=== PATIENT | female | born 1945 | race Caucasian/White ===

== ENCOUNTER → 2016-09-27 | Outpatient (REF) | payer MEDICARE | LOC: M SFHCCAPE 09:51 | PROVIDERS: ATTEND Physician Assistant | DX: E11.8 Type 2 diabetes mellitus with unspecified complications (principal); Z53.8 Procedure and treatment not carried out for other reasons ==

== ENCOUNTER → 2016-10-04 | Outpatient (REF) | payer MEDICARE ==
[2016-10-04 18:32] LABS: ALBUMIN 3.7 GM/DL (3.2-5.2); ALBUMIN/GLOBULIN RATIO 1.09 (1.00-1.93); ALKALINE PHOSPHATASE 105 U/L (45-117); ALT/SGPT 16 U/L (12-78); ANION GAP 9 MEQ/L (8-16); AST/SGOT 19 U/L (15-37); BILIRUBIN,TOTAL 0.5 MG/DL (0.2-1.0); BLOOD UREA NITROGEN 8 MG/DL (7-18); CALCIUM LEVEL 9.2 MG/DL (8.8-10.2); CARBON DIOXIDE LEVEL 29 MEQ/L (21-32); CHLORIDE LEVEL 106 MEQ/L (98-107); GLOMERULAR FILTRATION RATE > 60.0 (>39); GLUCOSE, FASTING 121 MG/DL (83-110); POTASSIUM SERUM 4.4 MEQ/L (3.5-5.1); SODIUM LEVEL 144 MEQ/L (136-145); TOTAL PROTEIN 7.1 GM/DL (6.4-8.2)
== END ==
LOC: M SFHCCAPE 09:54
PROVIDERS: ATTEND Physician Assistant
DX: E11.8 Type 2 diabetes mellitus with unspecified complications (principal)

== ENCOUNTER → 2016-10-22 | Outpatient (CLI) | payer MEDICARE ==
--- NOTE | 2016-10-22 10:21 | REPMRS ---
Patient History The patient states she had a clinical breast exam in October 2016. Patient is postmenopausal. Family history of breast cancer in mother at age 60. Patient had negative lump removed right breast about 20 years ago. Digital Mammo Screening Bilat: October 22, 2016 - Exam #: [id number] Bilateral CC and MLO view(s) were taken. Technologist: Aury Barragan, Technologist Prior study comparison: 2006, digital bilateral screening mammo, [facility]. FINDINGS: There are scattered fibroglandular densities. There is no evidence of cancer on this mammogram. ASSESSMENT: BI-RADS/ACR category 2 mammogram. Benign finding(s). Recommendation Routine screening mammogram of both breasts in 1 year (for women over age 40). This mammogram was interpreted with the aid of an FDA-approved computer-aided dectection system. Electronically Signed By: Meliton Au MD 10/22/16 [id number]
== END ==
LOC: M RAD 08:01
PROVIDERS: ATTEND Physician Assistant
DX: Z12.31 Encounter for screening mammogram for malignant neoplasm of breast (principal); Z78.0 Asymptomatic menopausal state; Z80.3 Family history of malignant neoplasm of breast

== ENCOUNTER → 2016-12-20 | Outpatient (REF) | payer MEDICARE ==
[2016-12-20 19:05] LABS: BASO % 0.5 % (0.0-1.0); EOS # 0.1 K/mm3 (0.0-0.50); EOS % 1.7 % (0.0-3.0); LARGE UNSTAINED CELL # 0.1 K/mm3 (0.0-0.4); LARGE UNSTAINED CELL % 2.1 % (0.0-4.0); LYMPH # 1.9 K/mm3 (1.5-4.5); LYMPH % 29.1 % (24.0-44.0); MEAN CORPUSCULAR HEMOGLOBIN 31.2 pg (27.0-33.0); MEAN CORPUSCULAR HGB CONC 32.9 g/dl (32.0-36.5); MEAN CORPUSCULAR VOLUME 94.6 fl (80.0-96.0); MONO # 0.4 K/mm3 (0.0-0.8); MONO % 6.4 % (0.0-5.0); NEUTROPHILS # 3.8 K/mm3 (1.8-7.7); NEUTROPHILS % 60.2 % (36.0-66.0); PLATELET COUNT, AUTOMATED 246 k/mm3 (150-450); RED CELL DISTRIBUTION WIDTH 12.1 % (11.5-14.5); WHITE BLOOD COUNT 6.2 K/mm3 (4.0-10.0)
[2016-12-20 20:07] LABS: ALBUMIN 3.9 GM/DL (3.2-5.2); ALBUMIN/GLOBULIN RATIO 1.15 (1.00-1.93); ALKALINE PHOSPHATASE 106 U/L (45-117); ALT/SGPT 25 U/L (12-78); ANION GAP 9 MEQ/L (8-16); AST/SGOT 22 U/L (15-37); BILIRUBIN,TOTAL 0.5 MG/DL (0.2-1.0); BLOOD UREA NITROGEN 13 MG/DL (7-18); CALCIUM LEVEL 9.4 MG/DL (8.8-10.2); CARBON DIOXIDE LEVEL 27 MEQ/L (21-32); CHLORIDE LEVEL 106 MEQ/L (98-107); CHOLESTEROL LEVEL 146 MG/DL (<200); GLOMERULAR FILTRATION RATE > 60.0 (>39); GLUCOSE, FASTING 131 MG/DL (83-110); POTASSIUM SERUM 4.2 MEQ/L (3.5-5.1); SODIUM LEVEL 142 MEQ/L (136-145); TOTAL PROTEIN 7.3 GM/DL (6.4-8.2); TRIGLYCERIDES LEVEL 127 MG/DL (<150)
== END ==
LOC: M SFHCCAPE 09:41
PROVIDERS: ATTEND Physician Assistant
DX: E11.8 Type 2 diabetes mellitus with unspecified complications (principal)

== ENCOUNTER → 2016-12-29 | Outpatient (REF) | payer MEDICARE | LOC: M SFHCCAPE 11:30 | PROVIDERS: ATTEND Physician Assistant | DX: R10.32 Left lower quadrant pain (principal) ==

== ENCOUNTER → 2017-01-03 | Outpatient (CLI) | payer MEDICARE ==
[~2017-01-03] MED LIST: GASTROGRAFIN SOLUTION 30ML (Q9963) As Ordered ONE; ISOVUE-370 76% 100ML VIAL (Q9967) As Ordered ONE
--- NOTE | 2017-01-03 14:06 | REP ---
CT ABDOMEN AND PELVIS WITH IV CONTRAST: TECHNIQUE: Axial contrast enhanced images from the lung bases to the pubic symphysis using 100 mL Isovue 370 intravenous contrast material with multiplanar reformations. No infiltrate is seen in the visualized lung bases. Liver, gallbladder, spleen, pancreas, and kidneys appear normal. Bilateral adrenal nodules are seen. Right adrenal nodule at bedtime a maximum diameter of 1.4 cm and left adrenal nodule has a maximum diameter of 2.1 cm. There is dilatation of the infrarenal abdominal aorta, maximum AP diameter is 3.5 cm. There is mild to moderate plaquing within the aneurysm. No adenopathy is seen. There is no free air or free fluid. There is no bowel wall thickening. There is no pelvic mass. Diffuse sigmoid diverticulosis is seen without evidence of acute diverticulitis. There are also multiple diverticula of the more superior aspect of the left colon. There are degenerative changes of the spine. There is a moderate hiatal hernia. IMPRESSION: Moderate hiatal hernia. Abdominal aortic aneurysm below the level of the renal artery measures 3.5 cm in maximum AP diameter. Sigmoid and left colonic diverticulosis without acute diverticulitis. No free air, free fluid or adenopathy. Bilateral adrenal nodules may represent adrenal adenomas. Recommend MRI of the adrenals or noncontrast CT of the adrenals to further evaluate. Signed by Meliton Au MD 01/03/2017 05:44 P
== END ==
LOC: M RAD 07:13
PROVIDERS: ATTEND Physician Assistant
DX: K44.9 Diaphragmatic hernia without obstruction or gangrene (principal); R93.5 Abnormal findings on diagnostic imaging of other abdominal regions, including retroperitoneum
CPT/HCPCS: 74177; Q9963; Q9967

== ENCOUNTER → 2017-01-11 | Outpatient (CLI) | payer MEDICARE ==
--- NOTE | 2017-01-11 17:26 | REP ---
RIBS BILATERAL WITH PA CHEST: REASON: Pain. Due to technique on both AP views posterior rib fractures on this exam can not be ruled out. This limited exam show no definite evidence of a rib fracture on the acceptable views provided. IMPRESSION: Limited exam. Repeat suggested. No definite acute fracture. Accompanying frontal view of the chest shows a right lower lobe patchy opacity possibly secondary to pneumonia or atelectasis. This needs to be correlated clinically with appropriate followup. It represents a change from the fontal view of the chest of 03/07/2014. Due to the potential for subsegmental atelectatic change due to splinting and right sided pain the concern for a right lower rib fracture is heightened. Consider bone scintigraphy.
== END ==
LOC: M CLY 14:23
PROVIDERS: ATTEND Physician Assistant
DX: R10.9 Unspecified abdominal pain (principal)

== ENCOUNTER → 2017-01-21 | Outpatient (CLI) | payer MEDICARE ==
--- NOTE | 2017-01-21 16:43 | REP ---
Clinical: Left anterior chest pain . Technique: Frontal view of the chest with multiple views of the right and left hemithoraces. Findings: Frontal view of the chest demonstrates a small peripheral right basilar infiltrate. Multiple views of the right and left hemithoraces demonstrate osteopenia and age-related changes as well as possible old subtle left rib fractures unchanged when compared to 03/07/2014. No new acute rib fracture/injury or pathology is appreciated. Impression: Possible small peripheral right basilar infiltrate/atelectasis. No obvious acute rib fracture identified.
== END ==
LOC: M CLY 15:51
PROVIDERS: ATTEND Physician Assistant
DX: R07.89 Other chest pain (principal)

== ENCOUNTER → 2017-02-03 | Outpatient (CLI) | payer MEDICARE ==
--- NOTE | 2017-02-03 13:57 | REP ---
MRI ADRENAL GLANDS: TECHNIQUE: Multiple axial and coronal sequences without IV contrast. These including in-phase and [id number] images. Small bilateral adrenal nodules are again seen. The right measures about 1.4 cm and the left about 2.1 cm. Comparing the in-phase to the [id number] images, there is a significant drop in signal within both nodules consistent with bilateral adrenal adenomas. IMPRESSION: MRI confirms that the small adrenal nodules do indeed represent adrenal adenomas. Signed by Meliton Au MD 02/03/2017 07:14 P
== END ==
LOC: M RAD 12:10
PROVIDERS: ATTEND Physician Assistant
DX: E27.9 Disorder of adrenal gland, unspecified (principal)

== ENCOUNTER → 2017-03-23 | Outpatient (REF) | payer MEDICARE ==
[2017-03-23 18:54] LABS: ALBUMIN 4.1 GM/DL (3.2-5.2); ALBUMIN/GLOBULIN RATIO 1.11 (1.00-1.93); ALKALINE PHOSPHATASE 121 U/L (45-117); ALT/SGPT 17 U/L (12-78); ANION GAP 7 MEQ/L (8-16); AST/SGOT 22 U/L (15-37); BILIRUBIN,TOTAL 0.5 MG/DL (0.2-1.0); BLOOD UREA NITROGEN 12 MG/DL (7-18); CALCIUM LEVEL 9.9 MG/DL (8.8-10.2); CARBON DIOXIDE LEVEL 28 MEQ/L (21-32); CHLORIDE LEVEL 106 MEQ/L (98-107); CHOLESTEROL LEVEL 151 MG/DL (<200); CREATININE FOR GFR 0.67 MG/DL (0.55-1.02); FREE T4 0.93 NG/DL (0.76-1.46); GLOMERULAR FILTRATION RATE > 60.0 (>39); GLUCOSE, FASTING 108 MG/DL (83-110); POTASSIUM SERUM 4.6 MEQ/L (3.5-5.1); SODIUM LEVEL 141 MEQ/L (136-145); TOTAL PROTEIN 7.8 GM/DL (6.4-8.2); TRIGLYCERIDES LEVEL 136 MG/DL (<150)
== END ==
LOC: M SFHCCAPE 07:06
PROVIDERS: ATTEND Physician Assistant
DX: I10 Essential (primary) hypertension (principal); E11.9 Type 2 diabetes mellitus without complications; Z79.82 Long term (current) use of aspirin; Z79.899 Other long term (current) drug therapy

== ENCOUNTER → 2017-03-29 | Outpatient (REF) | payer MEDICARE ==
[2017-03-29 18:23] LABS: ADD MANUAL DIFFER YES; MEAN CORPUSCULAR HEMOGLOBIN 32.1 pg (27.0-33.0); MEAN CORPUSCULAR HGB CONC 33.3 g/dl (32.0-36.5); MEAN CORPUSCULAR VOLUME 96.3 fl (80.0-96.0); PLATELET COUNT, AUTOMATED 286 k/mm3 (150-450); RED CELL DISTRIBUTION WIDTH 12.1 % (11.5-14.5); WHITE BLOOD COUNT 7.3 K/mm3 (4.0-10.0)
[2017-03-29 21:54] LABS: BASOPHILS 2 % (0-4); EOSINOPHILS 3 % (0-5)
== END ==
LOC: M SFHCCAPE 16:50
PROVIDERS: ATTEND Physician Assistant
DX: E11.9 Type 2 diabetes mellitus without complications (principal)

== ENCOUNTER 2017-05-05 16:12 | Emergency (ER) | payer MEDICARE ==
[~2017-05-05] VITALS: Ht 152.4 cm; Wt 70.4 kg
[2017-05-05 16:12] VITALS: BP 151/89
[2017-05-05] MEDS ORDERED: OXYCODONE/APAP 5MG/325MG(BULK FOR ED) 1 TABLET PO ONE (20:15)
[2017-05-05] MEDS ORDERED: PERCOCET 5MG/325MG TAB PO ONE (20:15)
== END 2017-05-05 20:46 | disposition home or self-care (01) ==
LOC: M ED 16:12
DX: M62.830 Muscle spasm of back (principal); I10 Essential (primary) hypertension; J44.9 Chronic obstructive pulmonary disease, unspecified; K21.9 Gastro-esophageal reflux disease without esophagitis; Z72.0 Tobacco use
CPT/HCPCS: 96374; 99281; J3360

== ENCOUNTER → 2017-05-06 | Outpatient (CLI) | payer MEDICARE ==
[~2017-05-06] MED LIST changes: -GASTROGRAFIN SOLUTION 30ML (Q9963) As Ordered ONE
--- NOTE | 2017-05-06 16:40 | REP ---
Clinical: Chronic cough. Technique: Axial contrast enhanced images from the thoracic inlet to the upper abdomen using 100 ml Isovue 370 intravenous contrast material with coronal and sagittal re-formations. Findings: Lung anderson demonstrate age-related scattered chronic interstitial changes and trace opacities in the lingula and deep right lung base which may reflect acute versus chronic fibroatelectatic changes. The opacity in the lingula measures roughly 2 cm maximal transverse diameter. No further consolidation, significant nodule or mass lesion identified. Tracheobronchial tree is patent. No obvious adenopathy. Mediastinum demonstrates atherosclerotic changes to the thoracic aorta and coronary arteries without aortic aneurysm/dissection or cardiomegaly. No pericardial effusion. Surrounding musculoskeletal structures demonstrate age-related degenerative changes. The visualized upper abdomen suggests bilateral adrenal hyperplasia and atherosclerotic changes along with mural thrombus and mild aneurysmal dilatation to the upper abdominal aorta cannot be excluded. Impression: 1. Lung anderson demonstrate chronic changes along with subtle opacities involving the lingula and right base which warrants followup examination in 3-6 months. 2. Limited evaluation of the upper abdomen incompletely evaluates a possible abdominal aortic aneurysm with mural thrombus and appears stable compared to CT of the abdomen dated 01/03/2017. Signed by Serjio King MD 05/06/2017 04:30 P
== END ==
LOC: M RAD 15:58
PROVIDERS: ATTEND Physician Assistant
DX: R91.8 Other nonspecific abnormal finding of lung field (principal)
CPT/HCPCS: 71260; Q9967

== ENCOUNTER → 2017-06-27 | Outpatient (REF) | payer MEDICARE ==
[2017-06-27 19:51] LABS: BASO % 0.5 % (0.0-1.0); EOS # 0.1 10^3/uL (0.0-0.50); EOS % 1.3 % (0.0-3.0); IMMATURE GRANULOCYTE % 0.3 % (0-0); LYMPH # 1.7 10^3/uL (1.5-4.5); LYMPH % 22.4 % (24.0-44.0); MEAN CORPUSCULAR HEMOGLOBIN 31.1 pg (27.0-33.0); MEAN CORPUSCULAR HGB CONC 32.6 g/dl (32.0-36.5); MEAN CORPUSCULAR VOLUME 95.1 fl (80.0-96.0); MONO # 0.6 10^3/uL (0.0-0.8); MONO % 7.7 % (0.0-5.0); NEUTROPHILS # 5.1 10^3/uL (1.8-7.7); NEUTROPHILS % 67.8 % (36.0-66.0); PLATELET COUNT, AUTOMATED 241 10^3/uL (150-450); RED CELL DISTRIBUTION WIDTH 11.9 % (11.5-14.5); WHITE BLOOD COUNT 7.5 10^3/uL (4.0-10.0)
[2017-06-27 21:20] LABS: ALBUMIN 3.6 GM/DL (3.2-5.2); ALBUMIN/GLOBULIN RATIO 1.09 (1.00-1.93); ALKALINE PHOSPHATASE 109 U/L (45-117); ALT/SGPT 15 U/L (12-78); ANION GAP 9 MEQ/L (8-16); AST/SGOT 14 U/L (15-37); BILIRUBIN,TOTAL 0.4 MG/DL (0.2-1.0); BLOOD UREA NITROGEN 9 MG/DL (7-18); CALCIUM LEVEL 9.4 MG/DL (8.8-10.2); CARBON DIOXIDE LEVEL 29 MEQ/L (21-32); CHLORIDE LEVEL 105 MEQ/L (98-107); CHOLESTEROL LEVEL 135 MG/DL (<200); CREATININE FOR GFR 0.63 MG/DL (0.55-1.02); FREE T4 0.97 NG/DL (0.76-1.46); GLOMERULAR FILTRATION RATE > 60.0 (>39); GLUCOSE, FASTING 131 MG/DL (83-110); SODIUM LEVEL 143 MEQ/L (136-145); TOTAL PROTEIN 6.9 GM/DL (6.4-8.2); TRIGLYCERIDES LEVEL 103 MG/DL (<150)
== END ==
LOC: M SFHCCAPE 10:02
PROVIDERS: ATTEND Physician Assistant
DX: E78.5 Hyperlipidemia, unspecified (principal); I10 Essential (primary) hypertension; E11.9 Type 2 diabetes mellitus without complications

== ENCOUNTER → 2017-07-21 | Outpatient (REF) | payer MEDICARE ==
[2017-07-21 17:25] LABS: INR 1.03
== END ==
LOC: M LAB REF 16:43
PROVIDERS: ATTEND Thoracic Surgery (Cardiothoracic Vascular Surgery)
DX: Z01.812 Encounter for preprocedural laboratory examination (principal); R91.1 Solitary pulmonary nodule

== ENCOUNTER → 2017-07-26 | Outpatient (CLI) | payer MEDICARE ==
[~2017-07-26] MED LIST changes: -ISOVUE-370 76% 100ML VIAL (Q9967) As Ordered ONE; +LIDOCAINE 1% MDV 20ML VIAL As Ordered ONE
--- NOTE | 2017-07-26 17:31 | REP ---
LIMITED CT CHEST: Limited CT of the chest is performed in the inferior aspect at the site of the consolidative opacity at the left costophrenic angle. The patient was scheduled for CT guided biopsy of this area today. However the consolidative opacity has resolved. This appears to have represented an area of atelectasis or infiltrate. There is no residual atelectasis or infiltrate remaining. Therefore no biopsy is performed. Signed by Meliton uA MD 07/27/2017 01:52 P
== END ==
LOC: M RADPRO 09:50
PROVIDERS: ATTEND Thoracic Surgery (Cardiothoracic Vascular Surgery)
DX: R91.1 Solitary pulmonary nodule (principal); Z87.891 Personal history of nicotine dependence; Z79.899 Other long term (current) drug therapy; Z53.9 Procedure and treatment not carried out, unspecified reason

== ENCOUNTER → 2017-09-14 | Outpatient (REF) | payer MEDICARE ==
[2017-09-14 18:03] LABS: ESTIMATED AVERAGE GLUCOSE 131 MG/DL (60-110); HEMOGLOBIN A1c 6.2 %
[2017-09-14 18:04] LABS: ALBUMIN 4.1 GM/DL (3.2-5.2); ALBUMIN/GLOBULIN RATIO 1.28 (1.00-1.93); ALKALINE PHOSPHATASE 107 U/L (45-117); ALT/SGPT 20 U/L (12-78); ANION GAP 9 MEQ/L (8-16); AST/SGOT 21 U/L (7-37); BILIRUBIN,TOTAL 0.5 MG/DL (0.2-1.0); BLOOD UREA NITROGEN 14 MG/DL (7-18); CALCIUM LEVEL 9.7 MG/DL (8.8-10.2); CARBON DIOXIDE LEVEL 28 MEQ/L (21-32); CHLORIDE LEVEL 106 MEQ/L (98-107); CHOLESTEROL LEVEL 161 MG/DL (<200); CHOLESTEROL RISK RATIO 2.555 (<5); CREATININE FOR GFR 0.72 MG/DL (0.55-1.02); GLOMERULAR FILTRATION RATE > 60.0 (>39); GLUCOSE, FASTING 112 MG/DL (83-110); HDL CHOLESTEROL 63 MG/DL (>40); LDL CHOLESTEROL 71.6 MG/DL (<100); NON-HDL-C 98 MG/DL; POTASSIUM SERUM 4.3 MEQ/L (3.5-5.1); SODIUM LEVEL 143 MEQ/L (136-145); TOTAL PROTEIN 7.3 GM/DL (6.4-8.2); TRIGLYCERIDES LEVEL 132 MG/DL (<150)
[2017-09-14 19:00] LABS: MALB URINE SIEMENS 14.2 MG/L; MAU/CREAT RATIO 17.1 MCG/MG (0.0-30.0)
== END ==
LOC: M SFHCCAPE 09:59
DX: I10 Essential (primary) hypertension (principal); E11.9 Type 2 diabetes mellitus without complications; E78.5 Hyperlipidemia, unspecified
CPT/HCPCS: 80053

== ENCOUNTER → 2017-11-23 | Outpatient (CLI) | payer MEDICARE | LOC: M CARPUL 10:48 | DX: R91.1 Solitary pulmonary nodule (principal) | CPT/HCPCS: 94060 ==

== ENCOUNTER → 2018-03-02 | Outpatient (REF) | payer MEDICARE ==
[2018-03-02 17:12] LABS: BASO % 0.5 % (0.0-1.0); EOS # 0.1 10^3/uL (0.0-0.50); EOS % 1.2 % (0.0-3.0); HEMATOCRIT 41.8 % (36.0-47.0); HEMOGLOBIN 13.9 g/dl (12.0-15.5); IMMATURE GRANULOCYTE % 0.2 % (0-3.0); LYMPH # 1.9 10^3/uL (1.5-4.5); LYMPH % 28.1 % (24.0-44.0); MEAN CORPUSCULAR HEMOGLOBIN 31.6 pg (27.0-33.0); MEAN CORPUSCULAR HGB CONC 33.3 g/dl (32.0-36.5); MONO # 0.6 10^3/uL (0.0-0.8); MONO % 8.9 % (0.0-5.0); NEUTROPHILS # 4.1 10^3/uL (1.8-7.7); NEUTROPHILS % 61.1 % (36.0-66.0); PLATELET COUNT, AUTOMATED 246 10^3/uL (150-450); RED CELL DISTRIBUTION WIDTH 11.9 % (11.5-14.5); WHITE BLOOD COUNT 6.7 10^3/uL (4.0-10.0)
[2018-03-02 17:24] LABS: ALBUMIN 3.7 GM/DL (3.2-5.2); ALBUMIN/GLOBULIN RATIO 1.06 (1.00-1.93); ALKALINE PHOSPHATASE 101 U/L (45-117); ALT/SGPT 21 U/L (12-78); ANION GAP 10 MEQ/L (8-16); AST/SGOT 19 U/L (7-37); BILIRUBIN,TOTAL 0.5 MG/DL (0.2-1.0); BLOOD UREA NITROGEN 13 MG/DL (7-18); CARBON DIOXIDE LEVEL 26 MEQ/L (21-32); CHLORIDE LEVEL 108 MEQ/L (98-107); CHOLESTEROL LEVEL 145 MG/DL (<200); CHOLESTEROL RISK RATIO 2.543 (<5); CREATININE FOR GFR 0.68 MG/DL (0.55-1.30); GLOMERULAR FILTRATION RATE > 60.0 (>39); GLUCOSE, FASTING 111 MG/DL (70-100); HDL CHOLESTEROL 57 MG/DL (>40); LDL CHOLESTEROL 61.4 MG/DL (<100); NON-HDL-C 88 MG/DL; POTASSIUM SERUM 4.2 MEQ/L (3.5-5.1); SODIUM LEVEL 144 MEQ/L (136-145); TOTAL PROTEIN 7.2 GM/DL (6.4-8.2); TRIGLYCERIDES LEVEL 133 MG/DL (<150)
[2018-03-02 17:28] LABS: ESTIMATED AVERAGE GLUCOSE 134 MG/DL (60-110); HEMOGLOBIN A1c 6.3 %
== END ==
LOC: M SFHCCAPE 10:42
DX: I10 Essential (primary) hypertension (principal); E11.9 Type 2 diabetes mellitus without complications; E78.5 Hyperlipidemia, unspecified
CPT/HCPCS: 80053

== ENCOUNTER → 2018-09-27 | Outpatient (REF) | payer MEDICARE ==
[2018-09-27 18:01] LABS: ALBUMIN 3.7 GM/DL (3.2-5.2); ALT/SGPT 21 U/L (12-78); BILIRUBIN,TOTAL 0.5 MG/DL (0.2-1.0); BLOOD UREA NITROGEN 10 MG/DL (7-18); CALCIUM LEVEL 9.6 MG/DL (8.8-10.2); CARBON DIOXIDE LEVEL 26 MEQ/L (21-32); CHLORIDE LEVEL 107 MEQ/L (98-107); CHOLESTEROL LEVEL 175 MG/DL (<200); CREATININE FOR GFR 0.73 MG/DL (0.55-1.30); GLOMERULAR FILTRATION RATE > 60.0 (>39); GLUCOSE, FASTING 106 MG/DL (70-100); HDL CHOLESTEROL 54 MG/DL (>40); LDL CHOLESTEROL 87 MG/DL (<100); NON-HDL-C 121 MG/DL; POTASSIUM SERUM 4.3 MEQ/L (3.5-5.1); SODIUM LEVEL 142 MEQ/L (136-145); TOTAL PROTEIN 7.3 GM/DL (6.4-8.2); TRIGLYCERIDES LEVEL 168 MG/DL (<150)
[2018-09-27 18:29] LABS: HEMOGLOBIN A1c 6.5 %
[2018-09-27 18:30] LABS: MALB URINE SIEMENS 21.7 MG/L
== END ==
LOC: M SFHCCAPE 10:44
PROVIDERS: ATTEND Physician Assistant
DX: E78.5 Hyperlipidemia, unspecified (principal); E11.9 Type 2 diabetes mellitus without complications

== ENCOUNTER → 2018-12-05 | Outpatient (CLI) | payer MEDICARE ==
--- NOTE | 2018-12-05 14:58 | REP ---
Clinical: Lung screening. History nicotine dependence. Comparison: 05/06/2017 Technique: Axial low-dose noncontrast images from the thoracic inlet to the upper abdomen using lung screening technique. Findings: The lung anderson demonstrate chronic age-related interstitial changes along with scattered chronic-appearing fibroatelectatic changes. Small areas of ill-defined opacity are identified predominantly in the right lower lobe with the largest near-solid area measuring approximately 11.5 mm. No pleural effusion/reaction or pneumothorax. Tracheobronchial tree is patent. Mediastinum demonstrates atherosclerotic changes of the coronary arteries without cardiomegaly. Incidental old healed rib fractures noted. Impression: Lung-RADS category IV-A. Management recommendations include 3-month follow-up chest CT. Electronically Signed by Serjio King MD 12/05/2018 02:49 P
== END ==
LOC: M RAD 13:50
PROVIDERS: ATTEND Physician Assistant
DX: Z12.2 Encounter for screening for malignant neoplasm of respiratory organs (principal); R91.8 Other nonspecific abnormal finding of lung field; F17.218 Nicotine dependence, cigarettes, with other nicotine-induced disorders

== ENCOUNTER → 2019-01-19 | Outpatient (CLI) | payer MEDICARE ==
--- NOTE | 2019-01-19 15:07 | REP ---
REASON: Followup abdominal aortic aneurysm. No prior ultrasounds for comparison. Previous CT showed aneurysm. Multiple ultrasonographic images of the abdominal aorta were obtained from the level of the celiac axis to the aortoiliac bifurcation in the longitudinal and transverse scan planes. The maximal AP dimension of the abdominal aorta as measured in the longitudinal scan plane is 5 cm. This aneurysmal dilatation measures 4.8 cm in length. It begins just beneath the renal veins continuing inferiorly. There is no evidence of common iliac artery ectasia. IMPRESSION: Abdominal aortic aneurysm as described above. Electronically Signed by Mj Leyva DO 01/19/2019 06:08 P
--- NOTE | 2019-01-19 15:22 | REPMRS ---
Patient History The patient states she has not had a clinical breast exam in over a year. Family history of breast cancer at age 60 in mother. Digital Mammo Screening Bilat: January 19, 2019 - Exam #: [id number] Bilateral CC and MLO view(s) were taken. Technologist: Aury Barragan, Technologist Prior study comparison: October 22, 2016, bilateral digital mammo screening bilat performed at [facility]. FINDINGS: There are scattered fibroglandular densities. There has been no change in the appearance of the mammogram from the prior studies. There is a mild amount of scattered fibroglandular density which is fairly symmetric. There is no interval development of dominant mass, architectural distortion, or clustered microcalcification suggestive of malignancy. 3-D tomosynthesis shows no additional findings. Assessment: BI-RADS/ACR category 1 mammogram. Negative Mammogram. Recommendation Routine screening mammogram of both breasts in 1 year (for women over age 40). This patient's Lifetime Breast Cancer RIsk is estimated at 4.9 %. This mammogram was interpreted with the aid of an FDA-approved computer-aided dectection system. Electronically Signed By: Vinicio Swain MD 01/19/19 [id number]
== END ==
LOC: M RAD 09:28
PROVIDERS: ATTEND Physician Assistant
DX: Z12.31 Encounter for screening mammogram for malignant neoplasm of breast (principal); I71.4 Abdominal aortic aneurysm, without rupture

== ENCOUNTER → 2019-01-22 | Outpatient (REF) | payer MEDICARE ==
[2019-01-22 18:46] LABS: BASO % 0.5 % (0.0-1.0); EOS # 0.1 10^3/uL (0.0-0.50); EOS % 0.9 % (0.0-3.0); HEMATOCRIT 39.3 % (36.0-47.0); HEMOGLOBIN 12.7 g/dl (12.0-15.5); LYMPH # 1.7 10^3/uL (1.5-4.5); LYMPH % 30.3 % (24.0-44.0); MEAN CORPUSCULAR HEMOGLOBIN 31.7 pg (27.0-33.0); MEAN CORPUSCULAR HGB CONC 32.3 g/dl (32.0-36.5); MONO # 0.6 10^3/uL (0.0-0.8); MONO % 10.4 % (0.0-5.0); NEUTROPHILS # 3.2 10^3/uL (1.8-7.7); NEUTROPHILS % 57.7 % (36.0-66.0); PLATELET COUNT, AUTOMATED 284 10^3/uL (150-450); RED BLOOD COUNT 4.01 10^6/uL (4.00-5.40); WHITE BLOOD COUNT 5.6 10^3/uL (4.0-10.0)
[2019-01-22 20:54] LABS: ALBUMIN 3.5 GM/DL (3.2-5.2); ALT/SGPT 18 U/L (12-78); BILIRUBIN,TOTAL 0.4 MG/DL (0.2-1.0); BLOOD UREA NITROGEN 10 MG/DL (7-18); CALCIUM LEVEL 9.1 MG/DL (8.8-10.2); CARBON DIOXIDE LEVEL 25 MEQ/L (21-32); CHLORIDE LEVEL 108 MEQ/L (98-107); CHOLESTEROL LEVEL 128 MG/DL (<200); CHOLESTEROL RISK RATIO 2.461 (<5); CREATININE FOR GFR 0.65 MG/DL (0.55-1.30); FOLATE > 24.0 NG/ML; GLOMERULAR FILTRATION RATE > 60.0 (>39); GLUCOSE, FASTING 104 MG/DL (70-100); HDL CHOLESTEROL 52 MG/DL (>40); LDL CHOLESTEROL 50 MG/DL (<100); NON-HDL-C 76 MG/DL; POTASSIUM SERUM 4.3 MEQ/L (3.5-5.1); SODIUM LEVEL 142 MEQ/L (136-145); THYROID STIMULATING HORMONE 0.967 uIU/ML (0.358-3.740); TOTAL PROTEIN 7.4 GM/DL (6.4-8.2); TRIGLYCERIDES LEVEL 128 MG/DL (<150); VITAMIN B12 LEVEL 557 PG/ML
[2019-01-22 21:29] LABS: HEMOGLOBIN A1c 6.2 %
== END ==
LOC: M SFHCCAPE 10:45
PROVIDERS: ATTEND Physician Assistant
DX: E11.8 Type 2 diabetes mellitus with unspecified complications (principal); E78.5 Hyperlipidemia, unspecified; K13.0 Diseases of lips

== ENCOUNTER → 2019-02-27 | Outpatient (CLI) | payer MEDICARE ==
--- NOTE | 2019-02-27 15:14 | REP ---
CT of the chest without IV contrast: Comparisons are the chest CT studies dated 12/05/2018 and 05/06/2017. In addition, images performed during a CT-guided lung biopsy o dated 09/24/2016 are reviewed. Upon review on 05/06/2017 there was a pleural-based nodular density in the deep inferolateral sulcus of the left hemithorax. The patient return for biopsy of this lesion on 07/26/2017, however the time of biopsy this lesion had resolved head. 05/06/2017 there was a pleural-based density in the deep inferior sulcus of the right hemithorax. This had decreased in size on 12/05/2018. However, on the study today the density in this location is again identified measuring 2.5 x 0.8 cm. Follow-up is recommended to determine if this lesion is persistent or transient. No other lung nodules or masses are identified. There is a small focal zone of chronic mild reticulonodular pattern anteromedially in the lingula of the left upper, unchanged from 12/05/2018, likely parenchymal scarring. The there is no mediastinal or axillary lymph node enlargement. In the absence of IV contrast the study is insensitive for hilar lymph node enlargement. There are multiple old left rib fractures posteriorly, posterolaterally and anteriorly. The unenhanced thoracic aorta is unremarkable. Cardiac size is normal. There is no pericardial effusion. Next the visualized upper abdominal contents demonstrate aneurysmal dilatation of the abdominal aorta measuring 4.1 cm in diameter. This is unchanged from 05/06/2017. Impression: There are multiple findings as described. In addition there is an abdominal aortic aneurysm as described. Electronically Signed by Meliton Alarcon MD 02/27/2019 03:05 P
== END ==
LOC: M RAD 13:25
PROVIDERS: ATTEND Physician Assistant
DX: R91.1 Solitary pulmonary nodule (principal)

== ENCOUNTER 2019-03-23 12:07 | Inpatient (IN) | payer MEDICARE, OTHER ==
[~2019-03-23] VITALS: Ht 152.4 cm; Wt 59.3 kg
[2019-03-23] MEDS ORDERED: ATOR40TA75 PO (12:15)
[2019-03-23] MEDS ORDERED: TREL1AER INH (12:15)
[2019-03-23] MEDS ORDERED: AMLO5TAB6 PO (12:15)
[2019-03-23] MEDS ORDERED: OMEP-218 PO (12:16)
[2019-03-23] MEDS ORDERED: ASPI81TA85 PO (12:16)
[2019-03-23] MEDS ORDERED: PARO40TA2 PO (12:16)
[2019-03-23] MEDS ORDERED: AMPICILLIN SOD/SULBACTAM SOD 3 GM in D5W MINI-BAG PLUS 100 ML IV ONE (13:00)
[2019-03-23 13:56] LABS: BASO % 0.3 % (0.0-1.0); EOS % 0.1 % (0.0-3.0); HEMATOCRIT 40.4 % (36.0-47.0); HEMOGLOBIN 13.3 g/dl (12.0-15.5); LYMPH # 1.8 10^3/uL (1.5-4.5); LYMPH % 14.3 % (24.0-44.0); MEAN CORPUSCULAR HEMOGLOBIN 31.4 pg (27.0-33.0); MEAN CORPUSCULAR HGB CONC 32.9 g/dl (32.0-36.5); MEAN CORPUSCULAR VOLUME 95.3 fl (80.0-96.0); MONO % 8.1 % (0.0-5.0); NEUTROPHILS # 9.6 10^3/uL (1.8-7.7); NEUTROPHILS % 76.8 % (36.0-66.0); PLATELET COUNT, AUTOMATED 277 10^3/uL (150-450); RED BLOOD COUNT 4.24 10^6/uL (4.00-5.40); WHITE BLOOD COUNT 12.6 10^3/uL (4.0-10.0)
--- NOTE | 2019-03-23 14:20 | REP ---
ULTRASOUND LEFT LATERAL ANKLE AND FOOT: Real-time sonographic evaluation of the left lateral ankle and foot region performed in the region of prior cat bite and swelling. At that location there is a oval area of mixed echogenicity which has an appearance most consistent with either phlegmonous change or an area of complex fluid. The area measures 2.7 x 0.6 x 3.2 cm. Electronically Signed by Meliton Au MD 03/25/2019 07:28 P
[2019-03-23 14:28] LABS: ERYTHROCYTE SEDIMENTATION RATE 60 mm/hr (0-30)
[2019-03-23 14:41] LABS: ALBUMIN 3.9 GM/DL (3.2-5.2); ALT/SGPT 18 U/L (12-78); BILIRUBIN,DIRECT 0.2 MG/DL (0.0-0.2); BILIRUBIN,TOTAL 0.8 MG/DL (0.2-1.0); BLOOD UREA NITROGEN 13 MG/DL (7-18); C REACTIVE PROTEIN QUANTITATIV 6.93 MG/DL (0.00-0.30); CALCIUM LEVEL 10.2 MG/DL (8.8-10.2); CARBON DIOXIDE LEVEL 26 MEQ/L (21-32); CHLORIDE LEVEL 104 MEQ/L (98-107); GLOMERULAR FILTRATION RATE > 60.0 (>39); GLUCOSE, FASTING 98 MG/DL (70-100); POTASSIUM SERUM 4.6 MEQ/L (3.5-5.1); SODIUM LEVEL 137 MEQ/L (136-145); TOTAL PROTEIN 7.9 GM/DL (6.4-8.2)
[2019-03-23] MEDS ORDERED: VITMTA PO (15:28)
[2019-03-23] MEDS ORDERED: ALB2.5NEB INH (15:28)
[2019-03-23] MEDS ORDERED: MAALOX 30 ML SUSP *UDC PO PRN (16:15)
[2019-03-23] MEDS ORDERED: ACETAMINOPHEN TAB 650MG DOSE (2X325MG) PO PRN (16:15)
[2019-03-23] MEDS ORDERED: MOM 30ML SUSPENSION UDC PO PRN (16:15)
--- NOTE | 2019-03-23 16:44 | HPEPDOC ---
General Date of Admission 03/23/19 Date of Service: Mar 23, 2019 Primary Care Physician: DESI BONILLA PA-C Other Providers Dr Pelaez Attending Physician: MICHAEL MARS DO Chief Complaint The patient is a 73-year-old female admitted with a reason for visit of Animal Bmtg-Vof-Ykrme To Ph/Kit. Source: Patient Exam Limitations: No limitations Timing/Duration: Day(s) (03/21/19) Severity: Moderate Associated Symptoms: Fever, Chills, Rash, Other (foot pain , swelling and drainage) History of Present Illness 73 yo diet controlled DM female seen in ED yesterday for cat bite, but did not get medications filled, returned to ED with increased fever, chills, foot swelling and pain. States on 03/21/19 was playing with a latter day adopted cat, put her foot on top of cat, and cat attacked her by biting and scratching. States throbbing foot pain with numbness intermittently to foot. pain to foot with walking. states no N, no V, no ANDERSON, no Cp, no SOB but has chronic smoker cough Home Medications Scheduled Amlodipine Besylate (Amlodipine Besylate) 5 Mg Tablet, 5 MG PO DAILY, (Reported) Aspirin (Aspir 81) 81 Mg Tablet.dr, 81 MG PO DAILY, (Reported) Atorvastatin Calcium (Atorvastatin Calcium) 40 Mg Tablet, 40 MG PO QHS, (Reported) Fluticasone/Umeclidin/Vilanter (Trelegy Ellipta 100-62.5-25) 1 Each Blst.w.dev, 1 PUFF INH DAILY, (Reported) Multivitamins (Thera M Plus Tablet) 1 Each Tablet, 1 TAB PO DAILY, (Reported) Omeprazole (Omeprazole) 20 Mg Capsule.dr, 20 MG PO DAILY, (Reported) Paroxetine HCl (Paroxetine HCl) 40 Mg Tablet, 40 MG PO DAILY, (Reported) Scheduled PRN Albuterol Sulfate (Albuterol Sulfate) 2.5 Mg/0.5 Ml Vial.neb, 2.5 MG INH Q6H PRN for SHORTNESS OF BREATH, (Reported) Allergies Coded Allergies: No Known Drug Allergies (Verified Allergy, Unknown, 03/23/19) Past Medical History Medical History HTN Hyperlipidemia COPD GERD Anxiety/depression NIDDM - diet controlled AAA Past surgical history: Right benign breast lumpectomy partial hysterectomy Social history: smokes 1 ppd no EtOH use Family history: mother from mucous plug and sepsis; father from lung cancer A-FIB/CHADSVASC A-FIB History Current/History of A-Fib/PAF?: No Review of Systems Other systems 10 systems reviewed and negative except as per HPI Physical Examination General Exam: Positive: Alert, Cooperative, Mild Distress Eye Exam: Positive: PERRLA, Conjunctiva & lids normal, EOMI ENT Exam: Positive: Atraumatic, Mucous membr. moist/pink, Pharynx Normal, Nares Patent Neck Exam: Positive: Supple, +2 carotid pulse wo bruit, Other (no cervical adenopathy) Chest Exam: Positive: Clear to auscultation, Normal air movement; Negative: Rales, Rhonchi, Wheezing, Diminished Heart Exam: Positive: Rate Normal, Regular Rhythm, Normal S1, Normal S2 Abdomen Exam: Positive: Normal bowel sounds, Soft (NT ND NABS; no inguinal adenopathy, no hernia) Extremity Exam: Positive: Edema (left dorsum of foot), Normal pulses, Tenderness (left foot), Swelling (left foot), Other (good cap refill to toes bilaterally; left foot warm to touch); Negative: Clubbing, Cyanosis Skin Exam: Positive: Nl turgor and temperature, Other skin issue (ertyhema to dorsum of left foot extending past ankle; serous drainage) Neuro Exam: Positive: Normal Speech, Strength at 5/5 X4 ext, Normal Tone, Sensation Intact Psych Exam: Positive: Mental status NL, Mood NL, Memory Intact, Oriented x 3 Other physical findings US left foot with loculated fluid area (inflammatory vs infectious) Vital Signs Vital Signs Date Time Temp Pulse Resp B/P (MAP) Pulse Ox O2 Delivery O2 Flow Rate FiO2 03/23/19 15:00 134/99 (111) 03/23/19 14:52 78 95 03/23/19 12:08 96.8 18 Room Air Laboratory Data Labs 24H Laboratory Tests 2 03/23/19 13:37: Immature Granulocyte % (Auto) 0.4, White Blood Count 12.6H, Red Blood Count 4.24, Hemoglobin 13.3, Hematocrit 40.4, Mean Corpuscular Volume 95.3, Mean Corpuscular Hemoglobin 31.4, Mean Corpuscular Hemoglobin Concent 32.9, Red Cell Distribution Width 13.2, Platelet Count 277, Neutrophils (%) (Auto) 76.8H, Lymphocytes (%) (Auto) 14.3L, Monocytes (%) (Auto) 8.1H, Eosinophils (%) (Auto) 0.1, Basophils (%) (Auto) 0.3, Neutrophils # (Auto) 9.6H, Lymphocytes # (Auto) 1.8, Monocytes # (Auto) 1.0H, Eosinophils # (Auto) 0.0, Basophils # (Auto) 0.0, Nucleated Red Blood Cells % (auto) 0.0, Erythrocyte Sedimentation Rate 60H, Anion Gap 7L, Glomerular Filtration Rate > 60.0, Calcium Level 10.2, Aspartate Amino Transf (AST/SGOT) 22, Alanine Aminotransferase (ALT/SGPT) 18, Alkaline Phosphatase 105, Total Bilirubin 0.8, Direct Bilirubin 0.2, C-Reactive Protein, Quantitative 6.93H, Total Protein 7.9, Albumin 3.9, Albumin/Globulin Ratio 0.98L, Thyroid Stimulating Hormone (TSH) 1.120 CBC/BMP Laboratory Tests 03/23/19 13:37 Red Blood Count 4.24, Mean Corpuscular Volume 95.3, Mean Corpuscular Hemoglobin 31.4, Mean Corpuscular Hemoglobin Concent 32.9, Red Cell Distribution Width 13.2, Neutrophils (%) (Auto) 76.8 H, Lymphocytes (%) (Auto) 14.3 L, Monocytes (%) (Auto) 8.1 H, Eosinophils (%) (Auto) 0.1, Basophils (%) (Auto) 0.3, Neutrophils # (Auto) 9.6 H, Lymphocytes # (Auto) 1.8, Monocytes # (Auto) 1.0 H, Eosinophils # (Auto) 0.0, Basophils # (Auto) 0.0 Microbiology Microbiology 03/23/19 Blood Culture, Received Pending 03/23/19 Blood Culture, Received Pending Assessment/Plan 1) cat bite ED has spoken with health department and awaiting information regarding rabies vaccination started on unasyn. BC and foot culture obtained prior to antibiotics and pending IV zosyn, po bactrim ordered 2) cellulitis left foot elevate, IV zosyn, po bactrim, BC and wound culture pending, if worsens, consider MRI of foot 3) diet controlled DM - not on any medications - monitor 4) HTN - stable with current medications DVT prophylaxis: lovenox CODE: FULL Plan / VTE VTE Prophylaxis Ordered?: Yes MICHAEL MARS DO Mar 23, 2019 15:37
[2019-03-23] MEDS ORDERED: ALBUTEROL SULFATE 2.5 MG/0.5 ML INH NEB SOLN INH PRN (17:00)
[2019-03-23 17:45] VITALS: BP 146/70
[2019-03-23] MEDS: PERCOCET 5MG/325MG TAB PO PRN (17:59)
[2019-03-23] MEDS: BACTRIM 160MG/800MG DS TAB PO SCH (21:01)
[2019-03-23] MEDS: ATORVASTATIN 20 MG TAB PO SCH (21:02)
[2019-03-23] MEDS: DOCUSATE SODIUM 100 MG CAP PO SCH (21:02)
[2019-03-23 22:00] VITALS: BP 133/75
[2019-03-23] MEDS: PIPERACILLIN/TAZOBACTAM SOD 4.5 GM in D5W MINI-BAG PLUS 50 ML IV SCH (23:06)
[2019-03-24 06:00] VITALS: BP 110/53
[2019-03-24 06:22] LABS: HEMOGLOBIN 11.9 g/dl (12.0-15.5); MEAN CORPUSCULAR HEMOGLOBIN 31.2 pg (27.0-33.0); MEAN CORPUSCULAR HGB CONC 33.1 g/dl (32.0-36.5); MEAN CORPUSCULAR VOLUME 94.5 fl (80.0-96.0); PLATELET COUNT, AUTOMATED 252 10^3/uL (150-450); RED BLOOD COUNT 3.81 10^6/uL (4.00-5.40); WHITE BLOOD COUNT 10.4 10^3/uL (4.0-10.0)
[2019-03-24] MEDS: PIPERACILLIN/TAZOBACTAM SOD 4.5 GM in D5W MINI-BAG PLUS 50 ML IV SCH ×3 (06:39→22:21)
[2019-03-24 06:44] LABS: BLOOD UREA NITROGEN 9 MG/DL (7-18); CALCIUM LEVEL 9.2 MG/DL (8.8-10.2); CARBON DIOXIDE LEVEL 27 MEQ/L (21-32); CHLORIDE LEVEL 107 MEQ/L (98-107); CREATININE FOR GFR 0.74 MG/DL (0.55-1.30); GLOMERULAR FILTRATION RATE > 60.0 (>39); GLUCOSE, FASTING 117 MG/DL (70-100); POTASSIUM SERUM 4.3 MEQ/L (3.5-5.1); SODIUM LEVEL 138 MEQ/L (136-145)
[2019-03-24] MEDS: OMEPRAZOLE 20 MG CAP PO SCH (08:22)
[2019-03-24] MEDS: DOCUSATE SODIUM 100 MG CAP PO SCH ×2 (08:22→22:19)
[2019-03-24] MEDS: BACTRIM 160MG/800MG DS TAB PO SCH ×2 (08:22→22:19)
[2019-03-24] MEDS: ASPIRIN 81 MG ENTERIC TAB PO SCH (08:22)
[2019-03-24] MEDS: PARoxetine 20 MG TAB PO SCH (08:22)
[2019-03-24] MEDS: ENOXAPARIN 40 MG/0.4 ML SYRINGE (J1650) SC SCH (08:23)
[2019-03-24] MEDS: MULTIVITAMINS/MINERALS THERAP 1 TAB PO SCH (08:23)
[2019-03-24] MEDS: amLODIPine 5 MG TAB PO SCH (08:28)
[2019-03-24] MEDS: PERCOCET 5MG/325MG TAB PO PRN ×3 (08:28→22:21)
[2019-03-24] MEDS ORDERED: ENTER DRUG NAME HERE (PATIENT'S OWN MED) INH SCH (09:00)
[2019-03-24 14:00] VITALS: BP 130/60
--- NOTE | 2019-03-24 18:27 | IPNPDOC ---
Text Note Date of Service The patient was seen on 03/24/19. NOTE S: patient states no fever. states able to wiggle toes and less pain to foot. states swelling less to foot. O:Vitals as below General: pleasant, NAD AAOx3 HRRR LCTA Ext: left foot dorsum swelling (but less compared to yesterday), no calor, minimal erythema extending to lower 1/3 leg. no drainage; palpable DP pulses. no toe swelling. (IMPROVED) A/P: 1) cat bite- continue iV zosyn and po bactrim. await cultures (non descript culture report with "various" gram started on unasyn. BC and foot culture obtained prior to antibiotics and pending IV zosyn, po bactrim ordered 2) cellulitis left foot elevate, IV zosyn, po bactrim, BC with no growth; wound culture growing variety of gram negative rods; check foot xray. foot appears better so no need for MRI 3) diet controlled DM - not on any medications - monitor 4) HTN - stable with current medications DVT prophylaxis: lovenox CODE: FULL VS,Fishbone, I+O VS, Fishbone, I+O Laboratory Tests 03/23/19 13:37 Red Blood Count 4.24, Mean Corpuscular Volume 95.3, Mean Corpuscular Hemoglobin 31.4, Mean Corpuscular Hemoglobin Concent 32.9, Red Cell Distribution Width 13.2, Neutrophils (%) (Auto) 76.8 H, Lymphocytes (%) (Auto) 14.3 L, Monocytes (%) (Auto) 8.1 H, Eosinophils (%) (Auto) 0.1, Basophils (%) (Auto) 0.3, Neutrophils # (Auto) 9.6 H, Lymphocytes # (Auto) 1.8, Monocytes # (Auto) 1.0 H, Eosinophils # (Auto) 0.0, Basophils # (Auto) 0.0 03/24/19 06:12 Red Blood Count 3.81 L, Mean Corpuscular Volume 94.5, Mean Corpuscular Hemoglob in 31.2, Mean Corpuscular Hemoglobin Concent 33.1, Red Cell Distribution Width 13.1, Calcium Level 9.2 Vital Signs Date Time Temp Pulse Resp B/P (MAP) Pulse Ox O2 Delivery O2 Flow Rate FiO2 03/24/19 08:58 18 03/24/19 08:28 84 112/64 03/24/19 06:00 97.1 93 03/23/19 12:08 Room Air I&O- Last 24 Hours up to 6 AM 03/24/19 06:00 Intake Total 150 ml Balance 150 ml MICHAEL MARS DO Mar 24, 2019 12:30
[2019-03-24 22:00] VITALS: BP 110/57
[2019-03-24] MEDS: ATORVASTATIN 20 MG TAB PO SCH (22:19)
[2019-03-25 06:00] VITALS: BP 102/58
[2019-03-25 06:50] LABS: HEMATOCRIT 34.4 % (36.0-47.0); HEMOGLOBIN 11.2 g/dl (12.0-15.5); MEAN CORPUSCULAR HEMOGLOBIN 31.1 pg (27.0-33.0); MEAN CORPUSCULAR HGB CONC 32.6 g/dl (32.0-36.5); MEAN CORPUSCULAR VOLUME 95.6 fl (80.0-96.0); PLATELET COUNT, AUTOMATED 233 10^3/uL (150-450); WHITE BLOOD COUNT 8.2 10^3/uL (4.0-10.0)
[2019-03-25] MEDS: PIPERACILLIN/TAZOBACTAM SOD 4.5 GM in D5W MINI-BAG PLUS 50 ML IV SCH ×3 (06:50→22:20)
[2019-03-25] MEDS: MULTIVITAMINS/MINERALS THERAP 1 TAB PO SCH (08:13)
[2019-03-25] MEDS: PARoxetine 20 MG TAB PO SCH (08:13)
[2019-03-25] MEDS: ASPIRIN 81 MG ENTERIC TAB PO SCH (08:13)
[2019-03-25] MEDS: BACTRIM 160MG/800MG DS TAB PO SCH ×2 (08:13→22:20)
[2019-03-25] MEDS: OMEPRAZOLE 20 MG CAP PO SCH (08:13)
[2019-03-25] MEDS: DOCUSATE SODIUM 100 MG CAP PO SCH ×2 (08:13→22:20)
[2019-03-25] MEDS: ENOXAPARIN 40 MG/0.4 ML SYRINGE (J1650) SC SCH (08:14)
[2019-03-25] MEDS: amLODIPine 5 MG TAB PO SCH (08:20)
--- NOTE | 2019-03-25 09:38 | IPNPDOC ---
Text Note Date of Service The patient was seen on 03/25/19. NOTE S: patient being seen for cat bite cellulitis. no fever, minimal foot pain. no CP, no SOB O: Vitals as below General: pleasant, NAD AAOx3 HRRR LCTA Ext/skin: left foot with no drainage, +Calor, +rubor from dorsum foot to mid pretibia (no improvement from yesterday). able to bend toes and flex ankle wtihout pain. A/P: 1) cat bite to left foot with subsequent cellulitis left foot. continue iV zosyn and po bactrim. negative wound cultures, 1 of 2 blood cultures with " bacteroides" - suspect contamination. minimal improvement over past 24 hours. continue IV antibiotic. foot xray ordered yesterday - but PAX down and unable to review films. report requested. 2) diet controlled DM - not on any medications - monitor 3) HTN - stable with current medications VS,Fishbone, I+O VS, Fishbone, I+O Laboratory Tests 03/25/19 06:06 Red Blood Count 3.60 L, Mean Corpuscular Volume 95.6, Mean Corpuscular Hemoglobin 31.1, Mean Corpuscular Hemoglobin Concent 32.6, Red Cell Distribution Width 13.0 Vital Signs Date Time Temp Pulse Resp B/P (MAP) Pulse Ox O2 Delivery O2 Flow Rate FiO2 03/25/19 08:20 68 122/74 03/25/19 06:00 96.7 18 97 03/23/19 12:08 Room Air I&O- Last 24 Hours up to 6 AM 03/25/19 05:59 Intake Total 1580 ml Output Total 650 ml Balance 930 ml MICHAEL MARS DO Mar 25, 2019 09:38
--- NOTE | 2019-03-25 10:45 | REP ---
LEFT FOOT SERIES: Four views of the left foot performed. No acute fracture or dislocation is seen. There is moderate joint space narrowing with subchondral sclerosis and mild spurring at the 1st metatarsophalangeal joint. There is no evidence of osseous destruction or periosteal reaction, with no evidence of osteomyelitis radiographically. IMPRESSION: Degenerative changes with no fracture or osseous destruction. Electronically Signed by Meliton Au MD 03/25/2019 11:36 P
[2019-03-25] MEDS: PERCOCET 5MG/325MG TAB PO PRN ×2 (13:47→18:39)
[2019-03-25 14:00] VITALS: BP 119/63
[2019-03-25 22:00] VITALS: BP 110/60
[2019-03-25] MEDS: ATORVASTATIN 20 MG TAB PO SCH (22:20)
[2019-03-26 06:00] VITALS: BP 118/64
[2019-03-26] MEDS: PIPERACILLIN/TAZOBACTAM SOD 4.5 GM in D5W MINI-BAG PLUS 50 ML IV SCH (06:26)
[2019-03-26] MEDS: PARoxetine 20 MG TAB PO SCH (08:41)
[2019-03-26] MEDS: BACTRIM 160MG/800MG DS TAB PO SCH (08:41)
[2019-03-26] MEDS: ASPIRIN 81 MG ENTERIC TAB PO SCH (08:41)
[2019-03-26] MEDS: DOCUSATE SODIUM 100 MG CAP PO SCH (08:41)
[2019-03-26] MEDS: MULTIVITAMINS/MINERALS THERAP 1 TAB PO SCH (08:41)
[2019-03-26] MEDS: ENOXAPARIN 40 MG/0.4 ML SYRINGE (J1650) SC SCH (08:41)
[2019-03-26 08:43] VITALS: BP 118/68
[2019-03-26] MEDS: amLODIPine 5 MG TAB PO SCH (08:43)
[2019-03-26] MEDS: OMEPRAZOLE 20 MG CAP PO SCH (08:44)
[2019-03-26] MEDS ORDERED: PERCOCET PO (11:36)
[2019-03-26] MEDS ORDERED: AUGM875T28 PO (11:36)
--- NOTE | 2019-03-26 11:46 | DS.PDOC ---
Discharge Summary General Date of Admission Mar 23, 2019 at 16:06 Date of Discharge 03/26/19 Primary Care Physician: DESI BONILLA PA-C Attending Physician: MICHAEL MARS DO Discharge Summary PROCEDURES PERFORMED DURING STAY: NONE ADMITTING DIAGNOSES: 1) cat bite 2) cellulitis left foot 3) diet controlled DM - neither hypoglycemia nor hyperglycemia 4) benign essential HTN DISCHARGE DIAGNOSES: 1) cat bite 2) Pasturella multicida cellulitis of left foot 3) diet controlled DM - neither hypoglycemia nor hyperglycemia 4) benign essential HTN COMPLICATIONS/CHIEF COMPLAINT: Cat Bit,Cellulitis Of Foot. HISTORY OF PRESENT ILLNESS: 73 yo diet controlled DM female seen in ED yesterday for cat bite, but did not get medications filled, returned to ED with increased fever, chills, foot swelling and pain. States on 03/21/19 was playing with a hinduism adopted cat, put her foot on top of cat, and cat attacked her by biting and scratching. States throbbing foot pain with numbness intermittently to foot. pain to foot with walking. states no N, no V, no ANDERSON, no Cp, no SOB but has chronic smoker cough. See H&P for details. HOSPITAL COURSE: admitted, placed on IV zosyn and bactrim; blood cultures negative; WBC improved and foot erythema/swelling improved. DISCHARGE MEDICATIONS: Please see below. ALLERGIES: Please see below. PHYSICAL EXAMINATION ON DISCHARGE: VITAL SIGNS: Please see below. General: pleasant, NAD AAOx3 Left foot with erythema from dorsum of foot to 3cm above ankle (improved) and induration 1cm at top of foot; swelling but able to wiggle toes, arch and wrinkles seen HRRR LCTA LABORATORY DATA: Please see below. IMAGING: foot xray with no fluid collection or osteomyelitis ACTIVITY: as tolerated, keep foot elevated when possible DIET: regular DISCHARGE PLAN: discharge home DISCHARGE INSTRUCTIONS: keep foot clean, dry and elevated. Can wash daily with hibclens or gentle soap and water (do not scrub) then apply neosporin or triple antibiotic ointment to weeping area on top of foot. Augmentin 875mg BID x 7 days Follow up with PCP in 2 days to recheck foot ITEMS TO FOLLOWUP ON ON OUTPATIENT: The public health department will call you regarding the cat and whether or not you need rabies vaccine DISCHARGE CONDITION:stable. TIME SPENT ON DISCHARGE: 30 minutes. Vital Signs/I&Os Vital Signs Date Time Temp Pulse Resp B/P (MAP) Pulse Ox O2 Delivery O2 Flow Rate FiO2 03/26/19 08:43 118/68 03/26/19 06:00 97.0 74 17 95 03/23/19 12:08 Room Air I&O- Last 24 Hours up to 6 AM 03/26/19 06:00 Intake Total 1010 ml Output Total 1000 ml Balance 10 ml Laboratory Data Labs 24H Laboratory Tests 03/25/19 06:06 Red Blood Count 3.60 L, Mean Corpuscular Volume 95.6, Mean Corpuscular Hemoglobin 31.1, Mean Corpuscular Hemoglobin Concent 32.6, Red Cell Distribution Width 13.0 Microbiology Microbiology 03/23/19 Blood Culture - Final, Complete Bacillus Sp., Not Anthracis 03/23/19 Blood Culture - Preliminary, Resulted No Growth after 48 hours. All Specime... 03/23/19 Gram Stain - Final, Complete 03/23/19 Abscess Culture - Final, Complete Pasteurella Multocida Discharge Medications Scheduled Amlodipine Besylate (Amlodipine Besylate) 5 Mg Tablet, 5 MG PO DAILY, (Reported) Amoxicillin/Potassium Clav (Augmentin 875-125 Tablet) 1 Each Tablet, 875 MG PO BID Aspirin (Aspir 81) 81 Mg Tablet.dr, 81 MG PO DAILY, (Reported) Atorvastatin Calcium (Atorvastatin Calcium) 40 Mg Tablet, 40 MG PO QHS, (Reported) Fluticasone/Umeclidin/Vilanter (Trelegy Ellipta 100-62.5-25) 1 Each Blst.w.dev, 1 PUFF INH DAILY, (Reported) Multivitamins (Thera M Plus Tablet) 1 Each Tablet, 1 TAB PO DAILY, (Reported) Omeprazole (Omeprazole) 20 Mg Capsule.dr, 20 MG PO DAILY, (Reported) Paroxetine HCl (Paroxetine HCl) 40 Mg Tablet, 40 MG PO DAILY, (Reported) Scheduled PRN Albuterol Sulfate (Albuterol Sulfate) 2.5 Mg/0.5 Ml Vial.neb, 2.5 MG INH Q6H PRN for SHORTNESS OF BREATH, (Reported) Oxycodone/Acetaminophen (Oxycodone-Acetaminophen 5-325) 1 Each Tablet, 1 TAB PO Q4HP PRN for MILD/MODERATE PAIN (PS 1-7) Allergies Coded Allergies: No Known Drug Allergies (Verified Allergy, Unknown, 03/23/19) MICHAEL MARS DO Mar 26, 2019 11:46
== END 2019-03-26 12:41 | disposition home or self-care (01) | DRG 605 ==
LOC: M ED 12:07 → M ED INP 16:06 → M MSPAV 17:36
PROVIDERS: ADMIT Family Medicine; ATTEND Family Medicine
DX: S91.352A Open bite, left foot, initial encounter (principal); A28.0 Pasteurellosis; L03.116 Cellulitis of left lower limb; W55.01XA Bitten by cat, initial encounter; Y92.22 Religious institution as the place of occurrence of the external cause; I10 Essential (primary) hypertension; E78.5 Hyperlipidemia, unspecified; J44.9 Chronic obstructive pulmonary disease, unspecified; K21.9 Gastro-esophageal reflux disease without esophagitis; F41.9 Anxiety disorder, unspecified; F32.9 Major depressive disorder, single episode, unspecified; E11.9 Type 2 diabetes mellitus without complications; I71.4 Abdominal aortic aneurysm, without rupture; F17.200 Nicotine dependence, unspecified, uncomplicated; Z79.82 Long term (current) use of aspirin; Z79.899 Other long term (current) drug therapy

== ENCOUNTER → 2019-05-01 | Outpatient (REF) | payer MEDICARE ==
[~2019-05-01] MED LIST changes: +ALB2.5NEB INH; +AMLO5TAB6 PO; +ASPI81TA85 PO; +ATOR40TA75 PO; +AUGM875T28 PO; -LIDOCAINE 1% MDV 20ML VIAL As Ordered ONE; +OMEP-218 PO; +PARO40TA2 PO; +PERCOCET PO; +TREL1AER INH; +VITMTA PO
[2019-05-01 16:57] LABS: BASO % 0.6 % (0.0-1.0); EOS # 0.1 10^3/uL (0.0-0.50); EOS % 1.6 % (0.0-3.0); HEMATOCRIT 40.1 % (36.0-47.0); HEMOGLOBIN 13.1 g/dl (12.0-15.5); LYMPH # 1.7 10^3/uL (1.5-4.5); LYMPH % 26.2 % (24.0-44.0); MEAN CORPUSCULAR HEMOGLOBIN 31.5 pg (27.0-33.0); MEAN CORPUSCULAR HGB CONC 32.7 g/dl (32.0-36.5); MEAN CORPUSCULAR VOLUME 96.4 fl (80.0-96.0); MONO # 0.5 10^3/uL (0.0-0.8); MONO % 8.2 % (0.0-5.0); NEUTROPHILS # 4.1 10^3/uL (1.8-7.7); NEUTROPHILS % 63.2 % (36.0-66.0); PLATELET COUNT, AUTOMATED 325 10^3/uL (150-450); RED BLOOD COUNT 4.16 10^6/uL (4.00-5.40); WHITE BLOOD COUNT 6.4 10^3/uL (4.0-10.0)
[2019-05-01 17:04] LABS: ALBUMIN 3.6 GM/DL (3.2-5.2); ALT/SGPT 16 U/L (12-78); BILIRUBIN,TOTAL 0.3 MG/DL (0.2-1.0); BLOOD UREA NITROGEN 10 MG/DL (7-18); CALCIUM LEVEL 9.8 MG/DL (8.8-10.2); CARBON DIOXIDE LEVEL 25 MEQ/L (21-32); CHLORIDE LEVEL 106 MEQ/L (98-107); CHOLESTEROL LEVEL 150 MG/DL (<200); CHOLESTEROL RISK RATIO 2.884 (<5); CREATININE FOR GFR 0.63 MG/DL (0.55-1.30); GLOMERULAR FILTRATION RATE > 60.0 (>39); GLUCOSE, FASTING 121 MG/DL (70-100); HDL CHOLESTEROL 52 MG/DL (>40); LDL CHOLESTEROL 74 MG/DL (<100); NON-HDL-C 98 MG/DL; POTASSIUM SERUM 4.6 MEQ/L (3.5-5.1); SODIUM LEVEL 141 MEQ/L (136-145); TOTAL PROTEIN 7.2 GM/DL (6.4-8.2); TRIGLYCERIDES LEVEL 120 MG/DL (<150)
[2019-05-01 17:15] LABS: HEMOGLOBIN A1c 6.3 %
== END ==
LOC: M SFHCCAPE 09:42
PROVIDERS: ATTEND Physician Assistant
DX: I10 Essential (primary) hypertension (principal); E11.9 Type 2 diabetes mellitus without complications; E78.5 Hyperlipidemia, unspecified

== ENCOUNTER → 2019-05-31 | Outpatient (CLI) | payer MEDICARE ==
--- NOTE | 2019-05-31 13:57 | REP ---
CT ABDOMEN AND PELVIS WITHOUT CONTRAST: CT abdomen and pelvis performed without oral or IV contrast. Sagittal and coronal reconstruction images are performed. Comparison made with prior CT of the chest 02/27/[address] abdomen and pelvis 01/03/2017. There is peribronchial thickening in the visualized lower lobes. Mild interstitial infiltrate is seen in the visualized left lower lobe. There are other underlying mild interstitial fibrotic changes. The liver is grossly unremarkable as is the gallbladder, spleen, pancreas, and kidneys. Small right adrenal adenoma measuring 1 cm and a left adrenal adenoma 1.7 cm are both stable compared to the prior studies. There is fusiform aneurysmal dilatation of the distal abdominal aorta below the level of the renal arteries with maximum AP dimension 4.2 cm and transverse 4.7 cm. Measurements on the abdominal CT in 2017 were 3.7 x 3.9 cm and therefore there has been mild increase in size of the aneurysm. There are scattered atherosclerotic calcifications in the wall of the abdominal aorta of a moderate degree. Aneurysm terminates just above the aortic bifurcation with mild ectasia just above the bifurcation 2.3 cm in AP dimension. The right common iliac artery and left common iliac artery are essentially normal in caliber. No adenopathy is seen. There is no free air or free fluid. There is no bowel wall thickening. There is sigmoid and left colonic diverticulosis without evidence of acute diverticulitis. I see no pelvic mass. Urinary bladder is not well distended and not well evaluated. There are degenerative changes of the spine. IMPRESSION: Mild increase in size of infrarenal abdominal aortic aneurysm compared to the prior CT exam of 01/03/2017 as discussed in detail above. Stable bilateral adrenal adenomas. Sigmoid and left colonic diverticulosis without acute diverticulitis. There appear to be inflammatory changes in the lung bases with peribronchial thickening bilaterally and mild interstitial infiltrate in the left lower lobe. Electronically Signed by Meliton Au MD 05/31/2019 04:55 P
== END ==
LOC: M RAD 12:39
PROVIDERS: ATTEND Surgery Vascular Surgery
DX: I71.4 Abdominal aortic aneurysm, without rupture (principal); I70.0 Atherosclerosis of aorta; K57.30 Diverticulosis of large intestine without perforation or abscess without bleeding; R91.8 Other nonspecific abnormal finding of lung field

== ENCOUNTER → 2019-07-26 | Outpatient (REF) | payer MEDICARE ==
[2019-07-26 16:50] LABS: BASO % 0.7 % (0.0-1.0); EOS # 0.2 10^3/uL (0.0-0.5); EOS % 3.3 % (0.0-3.0); HEMATOCRIT 39.2 % (36.0-47.0); HEMOGLOBIN 12.6 g/dl (12.0-15.5); LYMPH # 1.4 10^3/uL (1.5-5.0); LYMPH % 23.1 % (24.0-44.0); MEAN CORPUSCULAR HEMOGLOBIN 29.3 pg (27.0-33.0); MEAN CORPUSCULAR HGB CONC 32.1 g/dl (32.0-36.5); MEAN CORPUSCULAR VOLUME 91.2 fl (80.0-96.0); MONO # 0.6 10^3/uL (0.0-0.8); MONO % 9.3 % (0.0-5.0); NEUTROPHILS # 3.9 10^3/uL (1.5-8.5); NEUTROPHILS % 63.3 % (36.0-66.0); PLATELET COUNT, AUTOMATED 332 10^3/uL (150-450); WHITE BLOOD COUNT 6.2 10^3/uL (4.0-10.0)
[2019-07-26 16:54] LABS: ALBUMIN 3.2 GM/DL (3.2-5.2); ALT/SGPT 15 U/L (12-78); BILIRUBIN,TOTAL 0.3 MG/DL (0.2-1.0); BLOOD UREA NITROGEN 9 MG/DL (7-18); CALCIUM LEVEL 9.7 MG/DL (8.8-10.2); CARBON DIOXIDE LEVEL 27 MEQ/L (21-32); CHLORIDE LEVEL 107 MEQ/L (98-107); CHOLESTEROL LEVEL 143 MG/DL (<200); CHOLESTEROL RISK RATIO 2.803 (<5); CREATININE FOR GFR 0.66 MG/DL (0.55-1.30); GLOMERULAR FILTRATION RATE > 60.0 (>39); GLUCOSE, FASTING 127 MG/DL (70-100); HDL CHOLESTEROL 51 MG/DL (>40); LDL CHOLESTEROL 64 MG/DL (<100); NON-HDL-C 92 MG/DL; POTASSIUM SERUM 4.2 MEQ/L (3.5-5.1); SODIUM LEVEL 141 MEQ/L (136-145); TOTAL PROTEIN 7.2 GM/DL (6.4-8.2); TRIGLYCERIDES LEVEL 141 MG/DL (<150)
[2019-07-26 17:18] LABS: HEMOGLOBIN A1c 6.9 %
== END ==
LOC: M SFHCCAPE 10:59
PROVIDERS: ATTEND Physician Assistant
DX: I10 Essential (primary) hypertension (principal); E11.8 Type 2 diabetes mellitus with unspecified complications

== ENCOUNTER → 2020-03-21 | Outpatient (CLI) | payer MEDICARE ==
[~2020-03-21] MED LIST changes: +AMLO1TAB24 PO; -AMLO5TAB6 PO; -ASPI81TA85 PO; +ASPI81TA86 PO
--- NOTE | 2020-03-21 14:36 | REP ---
REASON FOR EXAM: Followup. COMPARISON EXAM: 02/27/2019, the latest prior. Lack of intravenous contrast decreases the sensitivity of the exam as on the prior exam. Mediastinum and pulmonary masoud are unchanged. No mass or adenopathy has developed. There is no change in the imaged upper abdomen or imaged osseous structures. Evaluation of the lung anderson shows stable-appearing chronic changes with pleuroparenchymal scarring and fibrotic change seen in conjunction with cylindrical bronchiectasis. No new abnormal nodules, masses, or opacities have developed. IMPRESSION: Stable CT examination of the chest with chronic changes, as described above, and without evidence of a new abnormal opacity. Once again, there is an abdominal aortic aneurysm partially imaged on this chest CT. Electronically Signed by Mj Leyva DO 03/21/2020 05:01 P
== END ==
LOC: M RAD 13:46
PROVIDERS: ATTEND Physician Assistant
DX: R91.8 Other nonspecific abnormal finding of lung field (principal)

== ENCOUNTER → 2020-05-22 | Outpatient (CLI) | payer MEDICARE ==
[~2020-05-22] MED LIST changes: +GASTROGRAFIN SOLUTION 30ML (Q9963) As Ordered ONE; +ISOVUE-370 76% 100ML VIAL As Ordered ONE
== END ==
LOC: M LABDRAWC 12:40 → M RAD 12:40
PROVIDERS: ATTEND Physician Assistant
DX: I71.4 Abdominal aortic aneurysm, without rupture (principal)

== ENCOUNTER → 2020-05-23 | Outpatient (REF) | payer MEDICARE ==
[~2020-05-23] MED LIST changes: -GASTROGRAFIN SOLUTION 30ML (Q9963) As Ordered ONE; -ISOVUE-370 76% 100ML VIAL As Ordered ONE
[2020-07-02 12:20] LABS: BLOOD UREA NITROGEN 8 MG/DL (7-18); CREATININE FOR GFR 0.67 MG/DL (0.55-1.30); GLOMERULAR FILTRATION RATE > 60.0 (>39)
== END ==
LOC: M LABDRAWC 05-22 12:13
PROVIDERS: ATTEND Surgery
DX: I71.4 Abdominal aortic aneurysm, without rupture (principal)

== ENCOUNTER → 2020-06-04 | Outpatient (CLI) | payer MEDICARE ==
[~2020-06-04] MED LIST changes: +GASTROGRAFIN SOLUTION 30ML (Q9963) As Ordered ONE; +ISOVUE-370 76% 100ML VIAL As Ordered ONE
--- NOTE | 2020-06-11 07:48 | REP ---
CT ABDOMEN AND PELVIS WITHOUT AND WITH INTRAVENOUS (IV) CONTRAST, WITH ORAL CONTRAST HISTORY: Abdominal aortic aneurysm without rupture. COMPARISON: CT studies are reviewed from 01/03/2017 and 05/31/2019. 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 The lung bases show fibrotic interstitial changes bilaterally, right more so than the left. There is some bronchial thickening consistent with bronchitis in the right lung base. No pleural effusion is seen. The liver and spleen are normal in size and homogeneous in texture. No abnormalities noted in the gallbladder or in the pancreas. There is a medially positioned descending duodenal diverticulum. Normal adrenal glands are seen bilaterally. The kidneys enhance symmetrically. They are morphologically intact. There is a 2-mm intrarenal calculus in the lower pole of the right kidney. No hydronephrosis is seen. There is left colonic diverticulosis without CT evidence of diverticulitis. No uterine or ovarian abnormality is seen. No abdominal wall defect is observed. No bony destructive lesion is appreciated. The abdominal aorta measures 2.5 cm in AP diameter proximally at the level of the diaphragm hiatus. Just below the origin of the renal arteries, there is a 2.3 cm ectasia in the abdominal aorta. The aorta is tortuous. There is an infrarenal abdominal aortic aneurysm again noted measuring 4.4 cm in AP dimension today, 3.6 cm in 2016 by my measurement, and 4.5 cm in AP dimension on 05/31/2019, again by my measurement. No iliac artery aneurysm is appreciated. There is mild ectasia of the distal aorta below the level of the aneurysm, 2.4 cm AP dimension. Vascular calcification is noted. IMPRESSION: Stable 4.4 cm infrarenal abdominal aortic aneurysm unchanged from the most recent prior CT study. MTDD
== END ==
LOC: M RAD 12:57
PROVIDERS: ATTEND Physician Assistant
DX: I71.4 Abdominal aortic aneurysm, without rupture (principal)
CPT/HCPCS: 74178; Q9963; Q9967

== ENCOUNTER → 2020-12-08 | Outpatient (REF) | payer MEDICARE ==
[~2020-12-08] MED LIST changes: -GASTROGRAFIN SOLUTION 30ML (Q9963) As Ordered ONE; -ISOVUE-370 76% 100ML VIAL As Ordered ONE
[2020-12-08 16:48] LABS: BASO # 0.1 10^3/uL (0.0-0.2); EOS # 0.1 10^3/uL (0.0-0.5); EOS % 1.2 % (0.0-3.0); HEMATOCRIT 40.4 % (36.0-47.0); LYMPH # 1.6 10^3/uL (1.5-5.0); LYMPH % 24.3 % (24.0-44.0); MEAN CORPUSCULAR HEMOGLOBIN 31.7 pg (27.0-33.0); MEAN CORPUSCULAR HGB CONC 32.2 g/dl (32.0-36.5); MEAN CORPUSCULAR VOLUME 98.5 fl (80.0-96.0); MONO # 0.6 10^3/uL (0.0-0.8); MONO % 8.7 % (2.0-8.0); NEUTROPHILS # 4.3 10^3/uL (1.5-8.5); NEUTROPHILS % 64.7 % (36.0-66.0); PLATELET COUNT, AUTOMATED 253 10^3/uL (150-450); WHITE BLOOD COUNT 6.7 10^3/uL (4.0-10.0)
[2020-12-08 17:24] LABS: ALBUMIN 3.9 GM/DL (3.2-5.2); ALT/SGPT 17 U/L (12-78); BILIRUBIN,TOTAL 0.3 MG/DL (0.2-1.0); BLOOD UREA NITROGEN 14 MG/DL (7-18); CALCIUM LEVEL 9.8 MG/DL (8.8-10.2); CARBON DIOXIDE LEVEL 27 MEQ/L (21-32); CHLORIDE LEVEL 110 MEQ/L (98-107); CHOLESTEROL LEVEL 150 MG/DL (<200); CHOLESTEROL RISK RATIO 2.307 (<5); CREATININE FOR GFR 0.64 MG/DL (0.55-1.30); GLOMERULAR FILTRATION RATE > 60.0 (>39); GLUCOSE, FASTING 109 MG/DL (70-100); HDL CHOLESTEROL 65 MG/DL (>40); LDL CHOLESTEROL 67 MG/DL (<100); NON-HDL-C 85 MG/DL; POTASSIUM SERUM 4.6 MEQ/L (3.5-5.1); SODIUM LEVEL 143 MEQ/L (136-145); TOTAL PROTEIN 7.3 GM/DL (6.4-8.2); TRIGLYCERIDES LEVEL 88 MG/DL (<150)
[2020-12-08 17:29] LABS: MALB URINE SIEMENS 13.7 MG/L; MAU/CREAT RATIO 16.3 MCG/MG (0.0-30.0)
[2020-12-08 18:11] LABS: HEMOGLOBIN A1c 5.9 %
== END ==
LOC: M SFHCCLAY 10:47
PROVIDERS: ATTEND Physician Assistant
DX: E78.5 Hyperlipidemia, unspecified (principal); I10 Essential (primary) hypertension; E11.8 Type 2 diabetes mellitus with unspecified complications

== ENCOUNTER → 2021-01-07 | Outpatient (CLI) | payer MEDICARE ==
--- NOTE | 2021-01-07 15:54 | REP ---
INDICATION: AAA COMPARISON: 06/04/2020. TECHNIQUE: CT Scan of the abdomen and pelvis was performed without intravenous contrast. Sagittal and coronal reconstruction images performed. FINDINGS: Lung bases: Bibasilar fibrotic changes appear stable. Old left rib fracture is noted. There is a small hiatal hernia. Liver: Grossly unremarkable. Gallbladder: Unremarkable. Spleen: Grossly unremarkable. Adrenals: There is a 2 cm left adrenal adenoma.. Pancreas: Grossly unremarkable.. Kidneys: There is a punctate calcification in the right lower pole collecting system. There is no hydroureteronephrosis bilaterally. Small and large bowel: There is colonic diverticulosis. There is no acute bowel inflammation or thickening. Free fluid: None. Abdominal aorta: There is again an aneurysm of the distal abdominal aorta. This measures approximately 4.3 x 4.9 cm, unchanged. There are moderate diffuse atherosclerotic calcifications. The iliac arteries are not dilated. Adenopathy: None. Appendix: Not inflamed. Osseous structures: Unremarkable. Pelvis: No mass. No bladder calculus seen. IMPRESSION: Stable aneurysm distal abdominal aorta. <Electronically signed by Meliton Au > 01/07/21 [id number]
== END ==
LOC: M RAD 14:58
PROVIDERS: ATTEND Physician Assistant
DX: I71.4 Abdominal aortic aneurysm, without rupture (principal)

== ENCOUNTER → 2021-02-13 | Outpatient (CLI) | payer MEDICARE ==
[~2021-02-13] MED LIST changes: +ASPI81TA26 PO
== END ==
LOC: M LABSMTC 10:55
PROVIDERS: ATTEND Anesthesiology
DX: Z01.812 Encounter for preprocedural laboratory examination (principal); Z20.822 Contact with and (suspected) exposure to COVID-19

== ENCOUNTER → 2021-03-04 | Outpatient (CLI) | payer MEDICARE ==
--- NOTE | 2021-03-04 15:56 | REP ---
INDICATION: R05 COMPARISON: None. TECHNIQUE: PA and lateral. FINDINGS: Diffuse chronic appearing pleuroparenchymal changes are suggested (right greater than left) superimposed right perihilar and basilar opacities cannot be excluded. Small pleural effusion cannot be excluded. No pneumothorax. Skeletal structures demonstrate age-related changes and old healed rib fractures. IMPRESSION: Chronic appearing changes suggested. Subtle superimposed right lower lobe airspace disease and possible small pleural effusion cannot be excluded. <Electronically signed by Serjio King > 03/04/21 [id number]
--- NOTE | 2021-03-04 15:58 | REP ---
INDICATION: M54.2 COMPARISON: None. TECHNIQUE: AP, lateral, flexion/extension, bilateral oblique, swimmer's and open-mouth views. FINDINGS: Alignment and lordosis is maintained. There is no evidence for acute fracture / compression injury or subluxation. Age-related osteopenia and multilevel degenerative changes are appreciated. Oblique views demonstrate patent neural foramen. Open mouth view demonstrates normal C1-C2 articulation and odontoid process.. IMPRESSION: Age-related osteopenia and relatively mild multilevel degenerative changes. <Electronically signed by Serjio King > 03/04/21 [id number]
== END ==
LOC: M ADAMS 15:13 → M CLY 15:23
PROVIDERS: ATTEND Physician Assistant
DX: M85.88 Other specified disorders of bone density and structure, other site (principal); R05 Cough; M54.2 Cervicalgia

== ENCOUNTER → 2021-03-17 | Outpatient (REF) | payer MEDICARE ==
[~2021-03-17] MED LIST changes: +OMEP-173 PO; -OMEP-218 PO
[2021-03-17 16:19] LABS: BASO # 0.1 10^3/uL (0.0-0.2); BASO % 0.6 % (0.0-1.0); EOS # 0.1 10^3/uL (0.0-0.5); HEMOGLOBIN 13.4 g/dl (12.0-15.5); LYMPH # 2.4 10^3/uL (1.5-5.0); LYMPH % 18.8 % (24.0-44.0); MEAN CORPUSCULAR HEMOGLOBIN 31.2 pg (27.0-33.0); MEAN CORPUSCULAR HGB CONC 31.9 g/dl (32.0-36.5); MEAN CORPUSCULAR VOLUME 97.7 fl (80.0-96.0); MONO # 1.1 10^3/uL (0.0-0.8); MONO % 8.5 % (2.0-8.0); NEUTROPHILS # 8.9 10^3/uL (1.5-8.5); NEUTROPHILS % 70.6 % (36.0-66.0); PLATELET COUNT, AUTOMATED 329 10^3/uL (150-450); WHITE BLOOD COUNT 12.5 10^3/uL (4.0-10.0)
[2021-03-17 16:52] LABS: ALBUMIN 3.5 GM/DL (3.2-5.2); ALT/SGPT 19 U/L (12-78); BILIRUBIN,TOTAL 0.4 MG/DL (0.2-1.0); BLOOD UREA NITROGEN 9 MG/DL (7-18); CALCIUM LEVEL 9.1 MG/DL (8.8-10.2); CARBON DIOXIDE LEVEL 26 MEQ/L (21-32); CHLORIDE LEVEL 106 MEQ/L (98-107); CHOLESTEROL LEVEL 149 MG/DL (<200); CHOLESTEROL RISK RATIO 2.525 (<5); CREATININE FOR GFR 0.69 MG/DL (0.55-1.30); GLOMERULAR FILTRATION RATE > 60.0 (>39); GLUCOSE, FASTING 117 MG/DL (70-100); HDL CHOLESTEROL 59 MG/DL (>40); LDL CHOLESTEROL 55 MG/DL (<100); NON-HDL-C 90 MG/DL; POTASSIUM SERUM 4.4 MEQ/L (3.5-5.1); SODIUM LEVEL 139 MEQ/L (136-145); THYROID STIMULATING HORMONE 0.843 uIU/ML (0.358-3.740); TOTAL PROTEIN 7.1 GM/DL (6.4-8.2); TRIGLYCERIDES LEVEL 173 MG/DL (<150)
== END ==
LOC: M SFHCCAPE 10:55
PROVIDERS: ATTEND Physician Assistant
DX: I10 Essential (primary) hypertension (principal)

== ENCOUNTER → 2021-03-23 | Outpatient (CLI) | payer MEDICARE ==
[~2021-03-23] MED LIST changes: -OMEP-173 PO; +OMEP-218 PO
--- NOTE | 2021-03-23 16:43 | REP ---
INDICATION: ABN FINDINGS OF LUNG FIELD. COMPARISON: Comparison chest CT studies are from March 21, 2020, February 27, 2019, and December 05, 2018.. TECHNIQUE: Helical scanning is acquired. 3 mm axial images are generated. Coronal and sagittal MPR and coronal MIP images are generated. 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 There are scattered areas of interstitial fibrosis in the right lower lobe, lingula, left upper lobe, and right middle lobe unchanged. No pleural effusion is seen. No lung mass or new pulmonary nodule is appreciated. There is some mild pleural thickening on the right. There are multiple old rib fractures bilaterally. On today's imaging study at the thoracic inlet, there is a relatively low-density mass to the right of the esophagus and just behind the trachea. This measures 3.0 x 2.4 cm in diameter on axial images by 2.7 cm craniocaudal. There is no air within this lesion. Differential possibilities include superior mediastinal adenopathy, Zenker's diverticulum, and thyroid or parathyroid nodule. Consider soft tissue neck/chest CT with IV contrast. No other mediastinal mass or adenopathy is observed. IMPRESSION: Stable chronic fibrotic changes in the lung anderson bilaterally. Multiple old rib fractures bilaterally. No parenchymal mass or significant nodule in the lung anderson seen. There is however a 3 cm mass posterior and to the right of the trachea and esophagus of uncertain etiology. Consider contrast enhanced soft tissue CT study of the chest for further evaluation. Barium esophagram could be considered as anchors diverticulum is in the differential. <Electronically signed by Vinicio Swain > 03/23/21 [id number]
== END ==
LOC: M PLAIMG 14:09
PROVIDERS: ATTEND Physician Assistant
DX: R91.8 Other nonspecific abnormal finding of lung field (principal)

== ENCOUNTER → 2021-05-28 | Outpatient (CLI) | payer MEDICARE ==
--- NOTE | 2021-05-28 15:17 | DEXAMM ---
INDICATION: Z78.0 POSTMENOPAUSAL. COMPARISON: None. TECHNIQUE: Bone density was measured using dual-energy x-ray absorptiometry (DEXA). FINDINGS: AP SPINE L1-L4 BMD 0.736 g/cm2 Young Adult T-Score -3.7 Age Matched Z-Score -1.9. LT FEMUR, TOTAL BMD 0.751 g/cm2 Young Adult T-Score -2.0 Age Matched Z-Score -0.2. LT NECK BMD 0.585 g/cm2 Young Adult T-Score -3.3 Age Matched Z-Score -1.3. RT FEMUR, TOTAL BMD 0.692 g/cm2 Young Adult T-Score -2.5 Age Matched Z-Score -0.7. RT NECK BMD 0.566 g/cm2 Young Adult T-Score -3.4 Age Matched Z-Score -1.4. IMPRESSION: There is osteoporosis of the spine. There is osteoporosis of the left hip. There is osteoporosis of the right hip. FOLLOW-UP: Recommendation for the next bone density exam: 2 years. <Electronically signed by Meliton Au > 05/28/21 [id number]
--- NOTE | 2021-05-28 15:24 | REPMRS ---
Patient History The patient states she has not had a clinical breast exam in over a year. Family history of breast cancer at age 60 in mother. 15 lb intentional weight loss. Patient states no breast complaints today. Patient has signed MRS History Sheet. Digital Woman Screen Mammo: May 28, 2021 - Exam #: [id number] Bilateral CC and MLO view(s) were taken. Technologist: RT Addis Prior study comparison: January 19, 2019, bilateral digital mammo screening bilat, performed at [facility]. October 22, 2016, bilateral digital mammo screening bilat, performed at [facility]. FINDINGS: There are scattered fibroglandular densities. Screening. Digital screening (2D) mammography was performed bilaterally in the CC and MLO projections. Additionally, breast tomosynthesis (3D mammography) was performed bilaterally in the CC and MLO projections. Todays exam was compared to the prior exam/exams. By history, the patient has no complaints of a palpable breast abnormality or other significant breast complaints. The Volpara volumetric breast density category is B, there are scattered areas of fibroglandular densities. The breasts are unchanged in size and shape. There are no jo-soft tissue densities or spiculated masses. There is no internal architectural distortion. There are no suspicious jo-calcific clusters. Skin thickening or nipple retraction is not present. IMPRESSION: BI-RADS Category 2- Benign Findings. There is no evidence of malignant alteration of the breasts. Followup examination recommended in one year. This mammogram was read [facility] assistance [facility],an FDA approved computer aided detection system for mammography. The lifetime Tyrer-Cuzick score is 4.1% Negative x-ray reports should not delay surgical consultation if a dominant or clinically suspicious mass is present. Not all breast cancers can be identified by mammography. Therefore, we recommend that you continue to perform regular breast self-examination and physical examination and then promptly contact your physician of any concerns or changes. Adenosis and dense breasts may obscure an underlying neoplasm. No significant changes when compared with prior studies. Assessment: BI-RADS/ACR category 2 mammogram. Benign Findings. Recommendation Routine screening mammogram of both breasts in 1 year. Electronically Signed By: Cy Christiansen MD 05/28/21 [id number]
== END ==
LOC: M WHC 14:01
PROVIDERS: ATTEND Physician Assistant
DX: Z12.31 Encounter for screening mammogram for malignant neoplasm of breast (principal); Z78.0 Asymptomatic menopausal state; Z80.3 Family history of malignant neoplasm of breast; M81.8 Other osteoporosis without current pathological fracture

== ENCOUNTER → 2021-07-06 | Outpatient (REF) | payer MEDICARE ==
[2021-07-06 18:00] LABS: ALBUMIN 3.6 GM/DL (3.2-5.2); ALT/SGPT 18 U/L (12-78); BASO % 0.6 % (0.0-1.0); BILIRUBIN,TOTAL 0.2 MG/DL (0.2-1.0); BLOOD UREA NITROGEN 12 MG/DL (7-18); CALCIUM LEVEL 9.2 MG/DL (8.8-10.2); CARBON DIOXIDE LEVEL 27 MEQ/L (21-32); CHLORIDE LEVEL 109 MEQ/L (98-107); CHOLESTEROL LEVEL 147 MG/DL (<200); CHOLESTEROL RISK RATIO 2.409 (<5); CREATININE FOR GFR 0.76 MG/DL (0.55-1.30); EOS # 0.1 10^3/uL (0.0-0.5); EOS % 1.6 % (0.0-3.0); GLOMERULAR FILTRATION RATE > 60.0 (>39); GLUCOSE, FASTING 91 MG/DL (70-100); HDL CHOLESTEROL 61 MG/DL (>40); HEMATOCRIT 39.8 % (36.0-47.0); HEMOGLOBIN 12.8 g/dl (12.0-15.5); LDL CHOLESTEROL 66 MG/DL (<100); LYMPH # 1.7 10^3/uL (1.5-5.0); LYMPH % 23.5 % (24.0-44.0); MEAN CORPUSCULAR HEMOGLOBIN 31.4 pg (27.0-33.0); MEAN CORPUSCULAR HGB CONC 32.2 g/dl (32.0-36.5); MEAN CORPUSCULAR VOLUME 97.5 fl (80.0-96.0); MONO # 0.7 10^3/uL (0.0-0.8); MONO % 9.3 % (2.0-8.0); NEUTROPHILS # 4.5 10^3/uL (1.5-8.5); NEUTROPHILS % 64.7 % (36.0-66.0); NON-HDL-C 86 MG/DL; PLATELET COUNT, AUTOMATED 274 10^3/uL (150-450); POTASSIUM SERUM 4.5 MEQ/L (3.5-5.1); RED BLOOD COUNT 4.08 10^6/uL (4.00-5.40); SODIUM LEVEL 142 MEQ/L (136-145); TOTAL PROTEIN 7.2 GM/DL (6.4-8.2); TRIGLYCERIDES LEVEL 100 MG/DL (<150)
[2021-07-06 18:21] LABS: TOTAL 25(OH) VITAMIN D 28.4 NG/ML (30.0-100.0)
== END ==
LOC: M SFHCCAPE 09:47
PROVIDERS: ATTEND Physician Assistant
DX: E78.5 Hyperlipidemia, unspecified (principal); E11.9 Type 2 diabetes mellitus without complications; Z79.899 Other long term (current) drug therapy

== ENCOUNTER → 2021-07-06 | Outpatient (CLI) | payer MEDICARE ==
--- NOTE | 2021-07-06 15:49 | REP ---
INDICATION: AAA. COMPARISON: 01/07/2021, 06/04/2020 TECHNIQUE: Noncontrast CT abdomen pelvis with coronal and sagittal reconstructions. FINDINGS: Lung bases: Some bibasilar fibrotic change again seen and stable. Old posterior left rib fracture and small hiatal hernia unchanged. Liver: No gross hepatomegaly or acute finding. Gallbladder: No calcified stone identified. Spleen: Unremarkable. Adrenals: Stable left adrenal adenoma about 2 cm. Pancreas: No mass or acute finding. Kidneys stable with only 1 tiny calcification lower pole left side 1-2 mm. No hydronephrosis, hydroureter, renal mass or perinephric edema. Small and large bowel: Colonic diverticulosis without diverticulitis left-side and sigmoid. No colitis or mass. No obstruction. Appendix: No inflammatory changes about the cecum. No mass. Free fluid: None Abdominal aorta the infrarenal abdominal aorta again shows an aneurysm 4.3 x 4.9 cm in transverse by AP dimension. Peripheral atherosclerotic calcifications. Heavy atherosclerotic calcifications in the proximal iliac vessels with mild ectasia but no aneurysm. Adenopathy: None seen. Bony structures: Stable, no acute finding. Pelvis: No pelvic mass or free fluid. Uterus not enlarged. No adnexal mass. IMPRESSION: 1. Stable infrarenal abdominal aortic aneurysm 4.3 cm AP x 4.9 cm transverse. No evidence of retroperitoneal leak. No change in the aneurysm or involvement of the bifurcation. Atherosclerotic plaque of the aorta and iliac vessels with some mild ectasia but no aneurysm of the iliacs. 2. No new findings. <Electronically signed by Rod Benz > 07/06/21 [id number]
== END ==
LOC: M PLAIMG 12:51
PROVIDERS: ATTEND Surgery
DX: I71.4 Abdominal aortic aneurysm, without rupture (principal)

== ENCOUNTER → 2021-12-14 | Outpatient (CLI) | payer MEDICARE ==
[~2021-12-14] MED LIST changes: +E-Z-GAS II EFFERVESCENT PACKET (SODIUM BICARB./CITRIC ACID/SIMETHICONE) As Ordered ONE; +E-Z-HD 98% w/w 340GM SUSP BTL As Ordered ONE; +E-Z-PAQUE 96% w/w SUSP 176GM BTL As Ordered ONE; +OMEP-173 PO; -OMEP-218 PO
== END ==
LOC: M RAD 10:02
PROVIDERS: ATTEND Internal Medicine Gastroenterology
DX: R93.89 Abnormal findings on diagnostic imaging of other specified body structures (principal)

== ENCOUNTER → 2021-12-28 | Outpatient (REF) | payer MEDICARE ==
[~2021-12-28] MED LIST changes: -E-Z-GAS II EFFERVESCENT PACKET (SODIUM BICARB./CITRIC ACID/SIMETHICONE) As Ordered ONE; -E-Z-HD 98% w/w 340GM SUSP BTL As Ordered ONE; -E-Z-PAQUE 96% w/w SUSP 176GM BTL As Ordered ONE
[2021-12-28 15:45] LABS: BASO # 0.1 10^3/uL (0.0-0.2); BASO % 0.7 % (0.0-1.0); EOS # 0.1 10^3/uL (0.0-0.5); EOS % 1.2 % (0.0-3.0); HEMATOCRIT 39.8 % (36.0-47.0); HEMOGLOBIN 13.1 g/dl (12.0-15.5); LYMPH # 1.7 10^3/uL (1.5-5.0); LYMPH % 22.9 % (24.0-44.0); MEAN CORPUSCULAR HEMOGLOBIN 30.5 pg (27.0-33.0); MEAN CORPUSCULAR HGB CONC 32.9 g/dl (32.0-36.5); MEAN CORPUSCULAR VOLUME 92.8 fl (80.0-96.0); MONO # 0.6 10^3/uL (0.0-0.8); MONO % 7.8 % (2.0-8.0); NEUTROPHILS # 5.1 10^3/uL (1.5-8.5); NEUTROPHILS % 67.3 % (36.0-66.0); PLATELET COUNT, AUTOMATED 293 10^3/uL (150-450); RED BLOOD COUNT 4.29 10^6/uL (4.00-5.40); WHITE BLOOD COUNT 7.6 10^3/uL (4.0-10.0)
[2021-12-28 15:50] LABS: APPEARANCE, URINE HAZY (CLEAR); BACTERIA, URINE AUTO 1+ (NEGATIVE); BILIRUBIN, URINE AUTO NEGATIVE (NEGATIVE); BLOOD, URINE BLOOD NEGATIVE (NEGATIVE); COLOR, URINE YELLOW (YELLOW); GLUCOSE, URINE (UA) AUTO NEGATIVE (NEGATIVE); KETONE, URINE AUTO NEGATIVE (NEGATIVE); LEUKOCYTE ESTERASE, URINE AUTO 1+ (NEGATIVE); NITRITE, URINE AUTO NEGATIVE (NEGATIVE); PROTEIN, URINE AUTO NEGATIVE (NEGATIVE); RBC, URINE AUTO 0 /HPF (0-3); SPECIFIC GRAVITY URINE AUTO 1.015 (1.002-1.035); SQUAMOUS EPITHELIAL CELL UR AU 20 /HPF (0-6); TRANSITIONAL EPITHELIAL AUTO <1 /HPF; UROBILINOGEN, URINE AUTO 0.2 mg/dL (0.0-2.0); WBC, URINE AUTO 4 /HPF (0-3)
[2021-12-28 16:05] LABS: HEMOGLOBIN A1c 5.9 %
[2021-12-28 16:21] LABS: ALBUMIN 3.6 GM/DL (3.2-5.2); ALT/SGPT 17 U/L (12-78); BILIRUBIN,TOTAL 0.3 MG/DL (0.2-1.0); BLOOD UREA NITROGEN 15 MG/DL (7-18); C REACTIVE PROTEIN QUANTITATIV 0.66 MG/DL (0.00-0.30); CARBON DIOXIDE LEVEL 27 MEQ/L (21-32); CHLORIDE LEVEL 108 MEQ/L (98-107); CHOLESTEROL LEVEL 158 MG/DL (<200); CHOLESTEROL RISK RATIO 2.724 (<5); CREATININE FOR GFR 0.61 MG/DL (0.55-1.30); GLOMERULAR FILTRATION RATE > 60.0 (>39); GLUCOSE, FASTING 114 MG/DL (70-100); HDL CHOLESTEROL 58 MG/DL (>40); LDL CHOLESTEROL 76 MG/DL (<100); LIPASE 80 U/L (73-393); NON-HDL-C 100 MG/DL; POTASSIUM SERUM 4.3 MEQ/L (3.5-5.1); SODIUM LEVEL 141 MEQ/L (136-145); TOTAL PROTEIN 7.3 GM/DL (6.4-8.2); TRIGLYCERIDES LEVEL 120 MG/DL (<150)
[2021-12-28 16:27] LABS: CREATININE, URINE 73.3 MG/DL; MALB URINE SIEMENS 15.7 MG/L; MAU/CREAT RATIO 21.4 MCG/MG (0.0-30.0)
== END ==
LOC: M SFHCCAPE 10:49
PROVIDERS: ATTEND Physician Assistant
DX: E11.9 Type 2 diabetes mellitus without complications (principal); E55.9 Vitamin D deficiency, unspecified

== ENCOUNTER → 2022-02-25 | Outpatient (CLI) | payer MEDICARE | LOC: M RAD 09:46 | PROVIDERS: ATTEND Surgery | DX: I71.4 Abdominal aortic aneurysm, without rupture (principal) ==

== ENCOUNTER → 2022-03-11 | Outpatient (REF) | payer MEDICARE ==
[2022-03-11 16:15] LABS: BASO # 0.1 10^3/uL (0.0-0.2); BASO % 0.9 % (0.0-1.0); EOS # 0.1 10^3/uL (0.0-0.5); EOS % 1.1 % (0.0-3.0); HEMOGLOBIN 12.8 g/dl (12.0-15.5); LYMPH # 2.1 10^3/uL (1.5-5.0); LYMPH % 30.2 % (24.0-44.0); MEAN CORPUSCULAR HEMOGLOBIN 29.8 pg (27.0-33.0); MEAN CORPUSCULAR HGB CONC 32.8 g/dl (32.0-36.5); MEAN CORPUSCULAR VOLUME 90.9 fl (80.0-96.0); MONO # 0.7 10^3/uL (0.0-0.8); MONO % 9.5 % (2.0-8.0); NEUTROPHILS # 4.1 10^3/uL (1.5-8.5); NEUTROPHILS % 58.2 % (36.0-66.0); PLATELET COUNT, AUTOMATED 289 10^3/uL (150-450); RED BLOOD COUNT 4.29 10^6/uL (4.00-5.40); WHITE BLOOD COUNT 7.1 10^3/uL (4.0-10.0)
[2022-03-11 16:24] LABS: INR 0.95; PROTHROMBIN TIME 13.1 SECONDS (12.7-14.5)
[2022-03-11 16:25] LABS: PARTIAL THROMBOPLASTIN TIME 31.7 SECONDS (25.9-37.0)
[2022-03-11 16:40] LABS: ALBUMIN 3.4 GM/DL (3.2-5.2); ALT/SGPT 13 U/L (12-78); BILIRUBIN,TOTAL 0.4 MG/DL (0.2-1.0); BLOOD UREA NITROGEN 12 MG/DL (7-18); CARBON DIOXIDE LEVEL 27 MEQ/L (21-32); CHLORIDE LEVEL 108 MEQ/L (98-107); CREATININE FOR GFR 0.57 MG/DL (0.55-1.30); GLOMERULAR FILTRATION RATE > 60.0 (>39); GLUCOSE, FASTING 80 MG/DL (70-100); POTASSIUM SERUM 4.4 MEQ/L (3.5-5.1); SODIUM LEVEL 141 MEQ/L (136-145); TOTAL PROTEIN 7.2 GM/DL (6.4-8.2)
== END ==
LOC: M SFHCCLAY 13:17
PROVIDERS: ATTEND Family Medicine
DX: E11.8 Type 2 diabetes mellitus with unspecified complications (principal); I10 Essential (primary) hypertension; I71.4 Abdominal aortic aneurysm, without rupture

== ENCOUNTER → 2022-04-05 | Outpatient (CLI) | payer MEDICARE | LOC: M RAD 14:43 | PROVIDERS: ATTEND Physician Assistant | DX: F17.218 Nicotine dependence, cigarettes, with other nicotine-induced disorders (principal); R91.8 Other nonspecific abnormal finding of lung field ==

== ENCOUNTER → 2022-06-02 | Outpatient (CLI) | payer MEDICARE | LOC: M PLAIMG 12:54 | PROVIDERS: ATTEND Surgery | DX: I71.4 Abdominal aortic aneurysm, without rupture (principal) ==